=== PATIENT | female | born 1955 | race Caucasian/White ===

== ENCOUNTER → 2016-08-12 | Outpatient (CLI) | payer BC ==
[~2016-08-12] MED LIST: ALBU1AER9 INH; AMLO-110 PO; ASPCH81X PO; ATOR-26 PO; CEPH500C2 PO; CHOL20009 PO; DSWCR TOP; FERR325T51 PO; FLUO0.05 TOP; FLV1 PO; FURO40TA3 PO; INSPMPHMLG; INSUINJ4 SQ; LANS30CA63 PO; LEVO200T6 PO; METO50TA7 PO; NITR0.4S UT; OXYC-57 PO; PANT40TA PO; PEPTO BISMOL PO; PREG150C PO; SERT-234 PO; TOPI50TA24 PO; TRIA0.1L EX; VITAMIN B12 PO; [UNRECOGNIZED DRUG - CODE] PO
[2016-08-12 13:52] LABS: ESTIMATED AVERAGE GLUCOSE 203 mg/dl; HA1C FLAG Normal (Normal)
[2016-08-12 17:32] LABS: AST/SGOT 17 U/L (15-37); BLOOD UREA NITROGEN 35 mg/dl (7-18); BUN/CREATININE RATIO 25.2 (10-20); CALCIUM 9.3 mg/dl (8.5-10.1); CARBON DIOXIDE 28 mmol/L (21-32); CHLORIDE 107 mmol/L (98-107); GLUCOSE 110 mg/dl (70-99); POTASSIUM 4.5 mmol/L (3.5-5.1); SODIUM 143 mmol/L (136-145)
[2016-08-12 17:43] LABS: ALB/GLOB RATIO 1.1 (0.9-2); ALKALINE PHOSPHATASE 130 U/L (45-117); ALT/SGPT 32 U/L (12-78)
== END | disposition home or self-care (01) ==
LOC: C.LABMFLN 08:00
PROVIDERS: ATTEND Internal Medicine Cardiovascular Disease
DX: E78.5 Hyperlipidemia, unspecified (principal); I12.9 Hypertensive chronic kidney disease with stage 1 through stage 4 chronic kidney disease, or unspecified chronic kidney disease; I25.10 Atherosclerotic heart disease of native coronary artery without angina pectoris; N18.3 Chronic kidney disease, stage 3 (moderate); I50.32 Chronic diastolic (congestive) heart failure; E06.3 Autoimmune thyroiditis; E10.22 Type 1 diabetes mellitus with diabetic chronic kidney disease

== ENCOUNTER → 2016-11-11 | Outpatient (CLI) | payer BC ==
[2016-11-11 13:04] LABS: URINE APPEARANCE CLEAR (CLEAR); URINE BILIRUBIN NEG (NEG); URINE COLOR DK YELLOW; URINE EPITHELIAL CELL AUTO >30 /lpf (0-5); URINE NITRITE NEG (NEG); URINE PH 5.5 (4.5-7.5); URINE SPECIFIC GRAVITY 1.021 (1.000-1.030); UROBILINOGEN NEG (NEG)
[2016-11-11 13:09] LABS: MANUAL MICROSCOPIC REQUIRED? NO; REVIEW REQ? NO
[2016-11-11 13:30] LABS: MEAN CELL VOLUME 90.7 fL (80-100); MEAN CORPUSCULAR HEMOGLOBIN 29.8 pg (25-34); MEAN CORPUSCULAR HGB CONC 32.9 g/dl (32-36); MEAN PLATELET VOLUME 12.7 fL (7.4-10.4); PLATELET COUNT 219 K/uL (130-400); RED BLOOD COUNT 4.19 M/uL (4.2-5.4); WHITE BLOOD COUNT 7.34 K/uL (4.8-10.8)
[2016-11-11 13:51] LABS: URINE PROTIEN/CREAT RATIO 0.1 (0-0.2); URINE TOTAL PROTEIN 17.6 mg/dl (0-11.9)
[2016-11-11 13:55] LABS: BLOOD UREA NITROGEN 24 mg/dl (7-18); BUN/CREATININE RATIO 15.7 (10-20); CARBON DIOXIDE 27 mmol/L (21-32); CHLORIDE 109 mmol/L (98-107); GLUCOSE 147 mg/dl (70-99); POTASSIUM 3.9 mmol/L (3.5-5.1); SODIUM 145 mmol/L (136-145)
[2016-11-11 14:06] LABS: FERRITIN 231.5 ng/ml (8.0-388.0); PHOSPHORUS 4.5 mg/dl (2.5-4.9); TOTAL IRON BINDING CAPACITY 260 mcg/dl (250-450)
[2016-11-11 14:22] LABS: ESTIMATED AVERAGE GLUCOSE 200 mg/dl; HA1C FLAG Normal (Normal)
[2016-11-11 15:07] LABS: CALCIUM 9.7 mg/dl (8.5-10.1)
== END | disposition home or self-care (01) ==
LOC: C.LABMFLN 09:09
PROVIDERS: ATTEND Internal Medicine Endocrinology, Diabetes & Metabolism
DX: N18.3 Chronic kidney disease, stage 3 (moderate) (principal); I12.9 Hypertensive chronic kidney disease with stage 1 through stage 4 chronic kidney disease, or unspecified chronic kidney disease; D64.9 Anemia, unspecified; E55.9 Vitamin D deficiency, unspecified; E03.9 Hypothyroidism, unspecified; E10.9 Type 1 diabetes mellitus without complications

== ENCOUNTER → 2017-04-21 | Day surgery (SDC) | payer BC ==
[2017-04-11 07:54] VITALS: Ht 164.5 cm; Wt 77.3 kg
--- NOTE | 2017-04-20 16:15 | History and Physical: Surg Cnt ---
History & Physical Date Apr 20, 2017. 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 1 diabetes mellitus (2) Diabetic peripheral neuropathy associated with type 1 diabetes mellitus (3) Loss of sensation Additional History Hepatic Disease: No Endocrine Disorder: Yes Kidney Disease: No Hypertension: No Heart Disease: No Bleeding Tendencies: No Infectious Diseases: No Allergies Coded Allergies: Ibuprofen (Verified Allergy, Unknown, NOT SUPPOSED TO TAKE-KIDNEY PROBLEMS , 04/11/17) Lansoprazole (Verified Allergy, Unknown, GI SYMPTOMS, 04/11/17) Metoclopramide (Verified Allergy, Unknown, ANXIOUS, 04/11/17) Naproxen (Verified Allergy, Unknown, NOT SUPPOSED TO TAKE D/T KIDNEY PROBLEMS, 04/11/17) Home Medications Scheduled Amlodipine (Norvasc), 5 MG PO QAM Aspirin (Aspirin Chewable), 81 MG PO QAM Atorvastatin (Lipitor), 80 MG PO HS Cholecalciferol (Vitamin D), 1 TAB PO QAM Folic Acid (Folic Acid), 1 TAB PO BID Furosemide (Lasix), 40 MG PO QAM Insulin Glargine (Lantus Solostar Pen), 12 UNIT SQ QAM Insulin Human Lispro (Insulin Humalog Pump ), 1 EA N/A UD Levothyroxine Sodium (Levothyroxine Sodium), 1 TAB PO QAM Metoprolol Succ (Toprol Xl) (Toprol-Xl), 50 MG PO QAM Nitroglycerin (Nitrostat), 0.4 MG UT PRN Pantoprazole (Protonix), 1 TAB PO BID Sertraline (Zoloft), 200 MG PO QAM Topiramate (Topamax), 50 MG PO BID Triamcinolone Acet 0.1% (Kenelog 0.1%), 1 DOSE EX BID [Vitamin B12], 250 MCG PO QAM Scheduled PRN Albuterol Sulfate (Proair Hfa), 2 PUFFS INH QID PRN Desonide 0.05% (Desowen 0.05%), 1 APPLN TOP BID PRN for PRN [Pepto Bismol Liquid], 30 PO for Diarrhea Physical Examination Skin: warm/dry, no rash Eyes: normal inspection, EOMI, sclerae normal ENT: normal ENT inspection, pharynx normal Head: normocephalic, atraumatic Neck: supple, no adenopathy, trachea midline Respiratory/Chest: lungs clear, normal breath sounds, no respiratory distress Cardiovascular: regular rate, rhythm, no edema, no murmur Abdomen / GI: normal bowel sounds, non tender Back: normal inspection Extremities: normal inspection, normal range of motion Neurologic/Psych: no motor/sensory deficits, alert, normal reflexes, oriented x 3 Diagnosis left side sensorineural hearing loss, Meniere's Plan of Treatment left cochlear implant
[~2017-04-21] VITALS: Ht 164.5 cm; Wt 77.3 kg
[~2017-04-21] MED LIST changes: +ATROPINE SULFATE 0.1 MG/ML 5ML SYR IV PRN; +CEFAZOLIN 1000MG/55 ML D5W IV SCH; +EpHEDrine SULFATE 50MG/5ML SYR ONE; +EpHEDrine SULFATE INJ 50 MG/ML AMP IV PRN; +FENTANYL CITRATE INJ 50 MCG/1 ML 2 ML VIAL IV PRN; +FENTANYL CITRATE INJ 50 MCG/1 ML 2 ML VIAL ONE; -FERR325T51 PO; -FLUO0.05 TOP; +GLYCOPYRROLATE INJ 0.2 MG/ML VIAL ONE; +LACTATED RINGER'S 1000ML 1,000 ML IV SCH; -LANS30CA63 PO; +LIDOCAINE HCL 2% 2 ML VIAL (20MG/ML) ONE; +LIDOCAINE/EPINEPHRINE 1% INJ 50 ML VIAL ONE; +METHYLENE BLUE 0.5% 10 ML VIAL ONE; +MIDAZOLAM HCL 1 MG/ML 2ML VIAL ONE; +NEOSTIGMINE METHYLSULFATE 5 MG/5 ML SYR ONE; +ONDANSETRON INJ 2 MG/ML 2 ML VIAL IV PRN; +ONDANSETRON INJ 2 MG/ML 2 ML VIAL ONE; +OXYCODONE/ACETAMINOPHEN 5-325 TAB PO PRN; -PREG150C PO; +PROPOFOL IV EMULSION 10 MG/ML 20 ML VIAL IV ONE; +SODIUM CHLORIDE 0.9% 1000ML 1,000 ML IV SCH; -[UNRECOGNIZED DRUG - CODE] PO
--- NOTE | 2017-04-21 07:05 | History & Physical Bridge Note ---
H&P Re-Evaluation Bridge Note: I have examined the patient, reviewed the History & Physical and in the interval since the performance of the History & Physical I have noted the following changes of clinical significance: No changes noted
--- NOTE | 2017-04-21 10:06 | Discharge Instructions-SurgCtr ---
Discharge Instructions Date of Service Apr 21, 2017. Visit Reason for Visit: Left Sensory Hearing Loss;Pre-Op Discharge Discharge Diagnosis / Problem: same Discharge Goals Goal(s): Improve function Medications Stopped Medications Name(s): Held ASA 81 mg x 2 days Activity Recommendations Activity Limitations: resume your previous activity Anesthesia . Post Anesthesia Instructions: If you have had General Anesthesia or IV Sedation: * Do not drive today. * Resume driving when surgeon permits. * Do not make important decisions or sign legal documents today. * Call surgeon for: 1. Temperature elevations greater than 101 degrees F. 2. Uncontrollable pain. 3. Excessive bleeding. 4. Persistent nausea and vomiting. 5. Medication intolerance (nausea, vomiting or rash). * For nausea and vomiting use only clear liquids such as: tea, soda, bouillon until nausea subsides, then gradually increase diet as tolerated. * If you have any concerns or questions, call your surgeon's office. If physician is unavailable and it is an emergency, call 911 or go to the nearest emergency room. . Instructions / Follow-Up Instructions / Follow-Up ACTIVITY RECOMMENDATIONS: No limitations OVER THE COUNTER MEDICATIONS: Continue any other previous medications unless otherwise indicated by your surgeon. * You may use Tylenol for mild pain as per bottle instructions. SPECIAL CARE INSTRUCTIONS: * Keep operative ear dry. * Change cotton balls 4 times per day. Leave packing in ear. * Sneeze with your mouth open. * Do not blow your nose. Sniff back instead. * Please call with any increasing pain, increasing drainage, active bleeding, redness and/or swelling, or any concerns. Dr. Bah's office number is . FOLLOW UP VISIT: If not already scheduled, please call to schedule follow-up appointment with Dr. Bah. Diet Recommendations Home Diet: no limitations Procedures Procedures Performed: Left Cochlear Implant Pending Studies Studies pending at discharge: no Medical Emergencies . Who to Call and When: Medical Emergencies: If at any time you feel your situation is an emergency, please call 911 immediately. . Non-Emergent Contact Non-Emergency issues call your: Primary Care Provider . . "Provider Documentation" section prepared by Adrianna Bah. . [place] Drug Monitoring Program Search Results: no issues identified
--- NOTE | 2017-04-21 10:23 | Anesthesiology Progress Note ---
Anesthesia Post Op Note Date & Time Apr 21, 2017 at 10:23 Vital Signs Pain Intensity: 0 Vital Signs Past 12 Hours Date Time Temp Pulse Resp B/P (MAP) Pulse Ox O2 Delivery O2 Flow Rate FiO2 04/21/17 09:42 36.2 77 12 170/72 100 Diffusion Mask 5 04/21/17 06:48 36.7 66 18 176/74 (108) 98 Room Air Notes Mental Status: alert / awake / arousable, participated in evaluation Pt Amnestic to Procedure: Yes Nausea / Vomiting: adequately controlled Pain: adequately controlled Airway Patency, RR, SpO2: stable & adequate BP & HR: stable & adequate Hydration State: stable & adequate Anesthetic Complications: no major complications apparent
[2017-04-21 10:33] VITALS: BP 134/68; PULSE 73; TEMP 36.8; O2SAT 99
--- NOTE | 2017-04-21 10:41 | OPERATIVE REPORT ---
DATE OF OPERATION: 04/21/2017 DIAGNOSIS: Left-sided sensorineural hearing loss with Meniere's disease. INDICATION: This 61-year-old lady experienced left-sided sensorineural hearing loss from persistent Meniere's disease and desires cochlear implant. PREOPERATIVE DIAGNOSIS: Left-sided sensorineural hearing loss. POSTOPERATIVE DIAGNOSIS: Same. PROCEDURE: Cochlear implant. SURGEON: Dr. Bah. ANESTHESIA: General endotracheal. COMPLICATIONS: None. BLOOD LOSS: 20 mL. DESCRIPTION OF PROCEDURE: The patient was brought to the operating room and placed in the supine position. General endotracheal anesthesia was induced. She was prepped with Betadine paint and draped in the usual sterile manner. The left postauricular area was shaved and prepped with Betadine paint. The incision was marked 6 cm behind the external auditory canal orifice. The incision was a semicircular incision of approximately 6 cm. The implant was in the middle and incision was 3 cm around the middle of the implant site. The incision was made using the 15 blade, carried down through the skin and subcutaneous layer and the temporalis muscle layer using the 15 blade. The elevation was continued posteriorly, exposing the implant site. Bleeders were controlled using the bipolar cautery. The implant site was exposed. The periosteum was incised with the cruciate incision using the 15 blade, and then using the periosteal elevator for elevating the periosteum, and then the drill bit was used to drill the 3 mm guide hole, and then the 4 mm drill bit was used to increase the depth of the guide hole, and then the widening drill was used to widen the site. The titanium implant was placed and tightened into place. Checking all the edges, with no bleeding noted, and with implant properly seated, and the magnet guide showing that the bone was not too high around the implant, the magnet was tightened into place at [address]. The incision was closed with interrupted 4-0 Vicryl suture and then with Dermabond on the skin. The Kathy dressing was placed. The patient tolerated the procedure well and was taken to recovery area in satisfactory condition. I attest to the content of the Intraoperative Record and any orders documented therein. Any exceptions are noted below. DAMIEN
== END | disposition home or self-care (01) ==
LOC: X.SURG 06:33
PROVIDERS: ATTEND Otolaryngology
DX: H81.02 Meniere's disease, left ear (principal); H90.5 Unspecified sensorineural hearing loss; E10.49 Type 1 diabetes mellitus with other diabetic neurological complication; E10.618 Type 1 diabetes mellitus with other diabetic arthropathy; Z79.82 Long term (current) use of aspirin; Z79.4 Long term (current) use of insulin

== ENCOUNTER → 2017-07-14 | Outpatient (CLI) | payer BC ==
[~2017-07-14] MED LIST changes: -ATROPINE SULFATE 0.1 MG/ML 5ML SYR IV PRN; -CEFAZOLIN 1000MG/55 ML D5W IV SCH; -EpHEDrine SULFATE 50MG/5ML SYR ONE; -EpHEDrine SULFATE INJ 50 MG/ML AMP IV PRN; -FENTANYL CITRATE INJ 50 MCG/1 ML 2 ML VIAL IV PRN; -FENTANYL CITRATE INJ 50 MCG/1 ML 2 ML VIAL ONE; -GLYCOPYRROLATE INJ 0.2 MG/ML VIAL ONE; -LACTATED RINGER'S 1000ML 1,000 ML IV SCH; -LIDOCAINE HCL 2% 2 ML VIAL (20MG/ML) ONE; -LIDOCAINE/EPINEPHRINE 1% INJ 50 ML VIAL ONE; -METHYLENE BLUE 0.5% 10 ML VIAL ONE; -MIDAZOLAM HCL 1 MG/ML 2ML VIAL ONE; -NEOSTIGMINE METHYLSULFATE 5 MG/5 ML SYR ONE; -ONDANSETRON INJ 2 MG/ML 2 ML VIAL IV PRN; -ONDANSETRON INJ 2 MG/ML 2 ML VIAL ONE; -OXYCODONE/ACETAMINOPHEN 5-325 TAB PO PRN; -PROPOFOL IV EMULSION 10 MG/ML 20 ML VIAL IV ONE; -SODIUM CHLORIDE 0.9% 1000ML 1,000 ML IV SCH
[2017-07-14 18:07] LABS: ALT/SGPT 22 U/L (12-78); AST/SGOT 14 U/L (15-37); BLOOD UREA NITROGEN 23 mg/dl (7-18); BUN/CREATININE RATIO 20.1 (10-20); CALCIUM 8.6 mg/dl (8.5-10.1); CARBON DIOXIDE 29 mmol/L (21-32); CHLORIDE 107 mmol/L (98-107); CREATININE 1.12 mg/dl (0.60-1.20); GLUCOSE 230 mg/dl (70-99); POTASSIUM 3.8 mmol/L (3.5-5.1); SODIUM 138 mmol/L (136-145)
[2017-07-14 18:18] LABS: ALKALINE PHOSPHATASE 121 U/L (45-117); CHOLESTEROL 272 mg/dl (0-200); CHOLESTEROL/HDL RATIO 4.1; HDL CHOLESTEROL 66 mg/dl; LDL CHOLESTEROL CALCULATED 186 mg/dl; THYROID STIMULATING HORMONE 0.845 uIu/ml (0.300-4.500); TRIGLYCERIDES 100 mg/dl (0-150); VERY LOW DENSITY LIPOPROT CALC 20 mg/dl
[2017-07-15 06:11] LABS: ESTIMATED AVERAGE GLUCOSE 203 mg/dl; HA1C FLAG Normal (Normal)
== END | disposition home or self-care (01) ==
LOC: C.LABMFLN 12:08
PROVIDERS: ATTEND Internal Medicine Endocrinology, Diabetes & Metabolism
DX: E78.5 Hyperlipidemia, unspecified (principal); I25.10 Atherosclerotic heart disease of native coronary artery without angina pectoris; Z95.1 Presence of aortocoronary bypass graft; E10.9 Type 1 diabetes mellitus without complications; E55.9 Vitamin D deficiency, unspecified

== ENCOUNTER → 2017-12-20 | Outpatient (CLI) | payer BC ==
[~2017-12-20] MED LIST changes: -CEPH500C2 PO; -METO50TA7 PO; +METO50TA8 PO; -OXYC-57 PO
[2017-12-20 13:30] LABS: HEMOGLOBIN A1C 8.8 % (4.5-5.6)
== END | disposition home or self-care (01) ==
LOC: C.LABMFLN 10:03
PROVIDERS: ATTEND Internal Medicine Endocrinology, Diabetes & Metabolism
DX: E78.5 Hyperlipidemia, unspecified (principal); E10.9 Type 1 diabetes mellitus without complications

== ENCOUNTER 2024-07-23 09:19 | Inpatient (IN) ==
[2024-07-23 10:11] LABS: iSTAT Creatinine 1.7 mg/dl (0.6-1.3); iSTAT Hemoglobin 9.2 g/dl (12.0-16.0); iSTAT Ionized Calcium 1.25 mmol/l (1.12-1.32); iSTAT Potassium 4.4 mmol/L (3.3-5.0)
--- NOTE | 2024-07-23 10:17 | Emergency Department Note ---
Impression & Plan SOB (shortness of breath), Anemia, Chest pain, exertional, Chronic anticoagulation ED Provider Note NAME: IRMA LEVIN AGE: 69 SEX: Female INFORMANT: Patient ED PROVIDER(S): Pete Thomas MD CHIEF COMPLAINT: Shortness of breath and chest pain PLAN: Disposition: Admitted Outpatient prescription management: none Referral: None MEDICAL DECISION MAKING: Patient presented because of shortness of breath and chest pain. She has a history of anticoagulation and anemia. She was referred by GI. Prior GI endoscopy reviewed and she was noted to have a friable gastric mucosa. Suspect this could be the etiology of her continued anemia. Patient does have a moderate anemia albeit somewhat better than prior. Cardiac workup negative. ECG nonischemic. Consultation was made with Dr. Amilcar Treviño of the [facility] service. He did request bilateral lower extremity ultrasounds as the patient could potentially require filter placement and wanted to know about clot burden. This was done. No residual DVT was found. Patient was evaluated in the ER for further management. 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 Triage Nursing notes: reviewed and agree them. Vital Signs: reviewed and remarkable for hypertension Additional History obtained from: none Chronic Medical/Social Conditions affecting care: Anticoagulation, anemia, CAD Prior/ Outside/ External records reviewed: Gastroenterology visit and endoscopy report reviewed from this fall. Friable gastric mucosa noted. Differential Diagnosis: Infection, dehydration, metabolic abnormality, hypo/hyperglycemia, electrolyte disturbance, anemia, hypoxia, cardiac sources, intracerebral event, toxicologic, neurologic, as well as other pathologies. Diagnostics, independently interpreted by me: ECG: Twelve-lead ECG reveals a normal sinus rhythm at [address] elevation or depression. No PACs or PVCs. Cardiac Monitoring: Cardiac monitoring ordered by me: The patient was placed on continuous cardiac monitoring and observed. It revealed a normal sinus rhythm at 81 beats per minute without ectopy or evidence of dysrhythmia. Medical decision rules: none Imaging studies: Chest x-ray reveals some trace pulmonary edema otherwise negative for infiltrate, pneumothorax, or free air. HPI: 69 year old Female arrives for evaluation of shortness of breath. This started over the week and is associated with exertion. Patient also notes having a low hemoglobin. Patient has a history of PE and is anticoagulated. She has a history of GI bleed. She was at the GI clinic today and referred to the ER. The patient also notes the following associated symptoms, substernal exertional chest pain, chronic dark stool. The patient has noted rest for relieving factors. Current pain is rated as 0/10. Pain was a 4. Pt denies LOC, headache, fevers, chills, diaphoresis, visual changes, neck pain, nausea, vomiting, abdominal pain, back pain, hematochezia, urinary symptoms, numbness, weakness, lymphadenopathy, rash, or other complaints.. PAST MEDICAL HISTORY: See Below, hide anemia, CAD, GERD diabetes PAST SURGICAL HISTORY: See Below, CABG SOCIAL HISTORY: See Below, HOME MEDICATIONS: See Below ALLERGIES: See Below VITALS: See Below PHYSICAL EXAMINATION: GENERAL: Awake, alert, [id number], in no distress HENT: Normocephalic, atraumatic. Oropharynx unremarkable. EYES: Normal conjunctiva. Sclera non-icteric. NECK: Inspection normal. Non-tender. Supple. No nuchal rigidity. FROM. No masses. RESPIRATORY: Clear to auscultation. No wheezes. No rales. Normal respiratory effort. CARDIAC: Normal rate. Normal rhythm. No murmurs. No rubs. Extremities warm and well perfused. Pulses equal. No JVD. GI: Soft, non-distended. No tenderness to palpation. No rebound or guarding. No masses. RECTAL: Deferred. MUSCULOSKELETAL: Atraumatic. Chest examination reveals no tenderness. The back is kyphotic on inspection without obvious abnormality. There is no CVA tenderness to palpation. No joint edema. LOWER EXTREMITIES: Calves are equal size bilaterally and non-tender. 1+ edema. NEURO: Normal sensorium. No sensory or motor deficits noted. SKIN: No rash or jaundice noted. 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 Bah 2017 left Cochlear Attract Anemia Constipation GERD (gastroesophageal reflux disease) Statin myopathy Meniere's disease of left ear Sensorineural hearing loss (SNHL) of left ear with restricted hearing of right ear Osteoporosis Diabetes type 1, controlled Foot drop Hypoglycemia unawareness in type 1 diabetes mellitus Depression with anxiety Ataxic gait Diabetic autonomic neuropathy associated with type 1 diabetes mellitus Diabetic nephropathy associated with type 1 diabetes mellitus Dysesthesia Dyslipidemia Gastroparesis History of stroke Hypothyroidism Loss of protective sensation of skin of foot Proliferative diabetic retinopathy associated with type 1 diabetes mellitus S/P CABG (coronary artery bypass graft) Vitamin D deficiency Hypertension Chronic kidney disease, stage III (moderate) Diabetic peripheral neuropathy associated with type 1 diabetes mellitus Medical History Status post placement of bone anchored hearing aid (BAHA) Sensorineural hearing loss (SNHL) of left ear with restricted hearing of right ear Proliferative diabetic retinopathy associated with type 1 diabetes mellitus Dyslipidemia Diabetic nephropathy associated with type 1 diabetes mellitus Diabetic peripheral neuropathy associated with type 1 diabetes mellitus Depression with anxiety Ataxic gait Chronic obstructive pulmonary disease Meniere disease of left ear Osteoporosis Hypothyroidism Hypertension History of CVA (cerebrovascular accident) GERD (gastroesophageal reflux disease) Gastroparesis Foot drop, left Chronic kidney disease, stage 3 Anemia Migraines Arthritis Degenerative disc disease Barretts esophagus Insulin pump in place Charcot's joint of foot in type 1 diabetes mellitus History of obesity Surgical History History of kyphoplasty History of cardiac cath Femur fracture, left History of esophagogastroduodenoscopy (EGD) History of colonoscopy History of bladder surgery History of tibial fracture History of tooth extraction History of cataract surgery History of carpal tunnel release Hx of hysterectomy Hx of tubal ligation Hx of CABG Family History Sister Breast cancer Hypertension Brother Diabetes Hypertension Other No family history of adverse response to anesthesia Denies family history of Ovarian cancer Prostate cancer Myocardial infarction Colorectal cancer Social History Smoking Status: Never smoker Second Hand Exposure: No; Do You Dip or Chew Tobacco: No; Hx Alcohol Use: No Hx Substance Use: No Preferred Language: Persian Communication Ability: Effective Visual Impairment: No Limitations Hearing Ability: Cochlear Implant Automatic 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: No Beliefs That Will Affect Care: None marital status: Unknown Current Living Situation: Significant Other current occupational status: retired Other Information That Helps Us Care for You: No Feels Safe at Home: Yes Safety Concerns: Feels Safe At This Time Diet: regular caffeine: Yes (12 oz decaf coffee daily) Physical Activity Frequency: Does not Exercise Seatbelt Use: always Do you think of yourself as: straight/heterosexual Gender Identity: Female Assistive Devices: Cane, CPAP, Glasses and Walker Allergies Allergies Allergy/AdvReac Type Severity Reaction Status Date / Time lansoprazole Allergy Mild GI SYMPTOMS Verified 07/23/24 08:27 lisinopril Allergy Mild cough Verified 07/23/24 08:27 metoclopramide Allergy Mild ANXIOUS Verified 07/23/24 08:27 ibuprofen Allergy Unknown NOT Verified 07/23/24 08:27 SUPPOSED TO TAKE-KIDNEY PROBLEMS naproxen Allergy Unknown NOT Verified 07/23/24 08:27 SUPPOSED TO TAKE D/T KIDNEY PROBLEMS [id number] Reductase AdvReac Intermediate muscle Verified 07/23/24 08:27 Inhibitor cramps Home Meds Home Medications Medication Instructions Recorded Confirmed blood sugar diagnostic (Contour #[id number] ea 04/20/19 07/23/24 Next Test Strips) calcium 333 mg 1 tab PO HS 03/25/21 07/23/24 (carbonate)-magnesium 133 mg (oxide)-zinc 5 mg tablet cyanocobalamin (vitamin B-12) 2,500 mcg PO QAM 03/25/21 07/23/24 2,500 mcg tablet losartan 100 mg tablet 100 mg PO QAM 03/25/21 07/23/24 aspirin 81 mg tablet,delayed 81 mg PO QAM 02/16/23 07/23/24 release (Adult Low Dose Aspirin) ezetimibe 10 mg tablet 10 mg PO QAM 08/11/23 07/23/24 albuterol sulfate 0.63 mg/3 mL 0.63 mg inhalation Q4H PRN sob 11/07/23 07/23/24 solution for nebulization amlodipine 10 mg tablet (Norvasc) 10 mg PO QAM 11/07/23 07/23/24 folic acid 1 mg tablet 1 mg PO HS 11/07/23 07/23/24 blood-glucose sensor (Dexcom G6 11/11/23 07/23/24 Sensor device) carvedilol 12.5 mg tablet 12.5 mg PO BID 11/11/23 07/23/24 spironolactone 25 mg tablet 25 mg PO QAM 11/11/23 07/23/24 torsemide 10 mg tablet 10 mg PO QAM PRN prn 03/28/24 07/23/24 insulin lispro 100 unit/mL 70 unit subcut DAILY 06/04/24 07/23/24 subcutaneous solution (Humalog U-100 Insulin) apixaban 5 mg tablet (Eliquis) 5 mg PO BID 07/03/24 07/23/24 Previous Rx's Medication Instructions Recorded denosumab 60 mg/mL subcutaneous 60 mg subcut Q6MO #1 mL 10/03/23 syringe (Prolia) famotidine 40 mg tablet 40 mg PO BID GERD #60 tabs 11/08/23 triamcinolone acetonide 0.1 % 1 applic topical DAILY #30 grams 01/17/24 topical ointment calcitriol 0.25 mcg capsule 0.25 mcg PO HS #30 caps 04/03/24 esomeprazole magnesium 40 mg 40 mg PO BID #60 caps 05/02/24 capsule,delayed release evolocumab 140 mg/mL subcutaneous 140 mg subcut UD #6 mL 05/31/24 pen injector (Grant Pottsick) Tirosint 125 mcg capsule 125 mcg PO DAILY #90 caps 06/11/24 (levothyroxine) Results & Data (ED) Vital Signs Vital Signs - 24 hr 07/23/24 09:33 07/23/24 10:04 07/23/24 10:05 Temperature 36.3 C L Temperature Source Oral Pulse Rate 84 79 Pulse Rate from SpO2 Sensor Pulse Rhythm Respiratory Rate 20 Respiratory Effort / Characteristics Non-Labored Respiratory Depth Normal Respiratory Pattern Regular Blood Pressure 149/70 H Blood Pressure Mean 96 Pulse Oximetry 98 98 Oxygen Delivery Method Room Air Room Air Oxygen Flow Rate 0 Sepsis Recent Fever Within 48 Hours No Sepsis New/Unexplained Change in Mental Status N/A Sepsis Action Taken by Nursing No Action Required 07/23/24 10:05 07/23/24 10:05 07/23/24 10:07 Temperature Temperature Source Pulse Rate 78 81 Pulse Rate from SpO2 Sensor Pulse Rhythm Regular Respiratory Rate 16 14 Respiratory Effort / Characteristics Respiratory Depth Respiratory Pattern Blood Pressure 153/95 H Blood Pressure Mean 114 Pulse Oximetry 98 98 98 Oxygen Delivery Method Room Air Room Air Room Air Oxygen Flow Rate Sepsis Recent Fever Within 48 Hours Sepsis New/Unexplained Change in Mental Status Sepsis Action Taken by Nursing 07/23/24 10:48 07/23/24 10:48 07/23/24 10:50 Temperature Temperature Source Pulse Rate 78 77 Pulse Rate from SpO2 Sensor 77 Pulse Rhythm Respiratory Rate 15 16 Respiratory Effort / Characteristics Respiratory Depth Respiratory Pattern Blood Pressure 154/75 H 154/75 H Blood Pressure Mean 120 120 Pulse Oximetry 96 96 Oxygen Delivery Method Oxygen Flow Rate Sepsis Recent Fever Within 48 Hours Sepsis New/Unexplained Change in Mental Status Sepsis Action Taken by Nursing 07/23/24 11:02 07/23/24 12:08 Temperature Temperature Source Pulse Rate 77 79 Pulse Rate from SpO2 Sensor 77 79 Pulse Rhythm Respiratory Rate 15 19 Respiratory Effort / Characteristics Respiratory Depth Respiratory Pattern Blood Pressure 158/79 H 161/74 H Blood Pressure Mean 105 103 Pulse Oximetry 98 97 Oxygen Delivery Method Oxygen Flow Rate Sepsis Recent Fever Within 48 Hours Sepsis New/Unexplained Change in Mental Status Sepsis Action Taken by Nursing Laboratory Data 07/23/24 09:50 07/23/24 09:50 Lab Results 07/23/24 07/23/24 07/23/24 Range/Units 09:50 09:52 09:57 WBC 7.31 (4.8-10.8) K/ul RBC 2.87 L (4.20-5.40) M/uL Hgb 8.2 L (12.0-16.0) g/dl POC Hgb 9.2 L (12.0-16.0) g/dl Hct 26.3 L (37.0-47.0) % POC Hct 27 L (37-47) % MCV 91.6 (80.0-100.0) fL MCH 28.6 (25.0-34.0) pg MCHC 31.2 L (32.0-36.0) g/dL RDW Std Deviation 49.6 H (36.4-46.3) fL RDW Coeff of Dash 14.6 H (11.5-14.5) % Plt Count 302 (130-400) K/uL MPV 11.0 (9.4-12.4) fL Immature Gran % (Auto) 0.3 % Neut % (Auto) 61.9 % Lymph % (Auto) 20.5 % [place] % (Auto) 7.7 % Eos % (Auto) 8.8 % Baso % (Auto) 0.8 % Neut # (Auto) 4.53 (1.40-6.50) K/uL Lymph # (Auto) 1.50 (1.20-3.40) K/uL [place] # (Auto) 0.56 (0.11-0.59) K/uL Eos # (Auto) 0.64 H (0.00-0.50) K/uL Baso # (Auto) 0.06 (0.00-0.20) K/uL Immature Gran # (Auto) 0.02 (0.01-0.20) K/uL POC Sodium 139 (135-144) mmol/L Sodium 138 (136-145) mmol/L POC Potassium 4.4 (3.3-5.0) mmol/L Potassium 4.4 (3.5-5.1) mmol/L POC Chloride 104 (101-112) mmol/L Chloride 106 (98-107) mmol/L Carbon Dioxide 26 (21-32) mmol/L POC Total CO2 24 (24-31) mmol/L Anion Gap 6 (3-11) POC Anion Gap 17.0 (16-25) mmol/L POC BUN 27 H (7-18) mg/dl BUN 30 H (6-23) mg/dl Creatinine 1.60 H (0.6-1.2) mg/dl POC Creatinine 1.7 H (0.6-1.3) mg/dl Est Cr Clr Drug Dosing 35.7 ml/min eGFR 34.48 BUN/Creatinine Ratio 18.8 (10-20) Glucose 171 H (70-99(Fasting)) mg/dl POC Glucose (other) 163 H (70-99) mg/dl Calcium 9.5 (8.6-10.3) mg/dl POC Ioniz Calcium Zackary 1.25 (1.12-1.32) mmol/l Magnesium 1.9 (1.7-2.4) mg/dl Total Bilirubin 0.4 (0.2-1.0) mg/dl AST 13 (13-39) U/L ALT 10 (7-52) U/L Alkaline Phosphatase 46 (34-104) U/L Troponin I High Sens 8.4 (0-14) pg/ml B-Natriuretic Peptide (0-100) pg/ml Total Protein 6.4 (6.0-8.3) gm/dl Albumin 4.2 (3.4-5.0) gm/dl Globulin 2.2 L (2.5-4.0) gm/dl Albumin/Globulin Ratio 1.9 (0.9-2) Urine Color Urine Appearance (Clear) Urine pH (4.5-7.5) Ur Specific [place] (1.000-1.030) Urine Protein (Negative) Urine Glucose (UA) (Negative) Urine Ketones (Negative) Urine Blood (Negative) Urine Nitrite (Negative) Urine Bilirubin (Negative) Urine Urobilinogen (Negative) Ur Leukocyte Esterase (Negative) Urine WBC (Auto) (0-5) /hpf Urine RBC (Auto) (0-2) /hpf U Hyaline Cast (Auto) (0-2) /lpf U Epithel Cells (Auto) (0-2) /hpf Urine Bacteria (Auto) (None Seen) Blood Type A Positive Antibody Screen NEGATIVE 07/23/24 07/23/24 Range/Units 10:45 11:21 WBC (4.8-10.8) K/ul RBC (4.20-5.40) M/uL Hgb (12.0-16.0) g/dl POC Hgb (12.0-16.0) g/dl Hct (37.0-47.0) % POC Hct (37-47) % MCV (80.0-100.0) fL MCH (25.0-34.0) pg MCHC (32.0-36.0) g/dL RDW Std Deviation (36.4-46.3) fL RDW Coeff of Dash (11.5-14.5) % Plt Count (130-400) K/uL MPV (9.4-12.4) fL Immature Gran % (Auto) % Neut % (Auto) % Lymph % (Auto) % [place] % (Auto) % Eos % (Auto) % Baso % (Auto) % Neut # (Auto) (1.40-6.50) K/uL Lymph # (Auto) (1.20-3.40) K/uL [place] # (Auto) (0.11-0.59) K/uL Eos # (Auto) (0.00-0.50) K/uL Baso # (Auto) (0.00-0.20) K/uL Immature Gran # (Auto) (0.01-0.20) K/uL POC Sodium (135-144) mmol/L Sodium (136-145) mmol/L POC Potassium (3.3-5.0) mmol/L Potassium (3.5-5.1) mmol/L POC Chloride (101-112) mmol/L Chloride (98-107) mmol/L Carbon Dioxide (21-32) mmol/L POC Total CO2 (24-31) mmol/L Anion Gap (3-11) POC Anion Gap (16-25) mmol/L POC BUN (7-18) mg/dl BUN (6-23) mg/dl Creatinine (0.6-1.2) mg/dl POC Creatinine (0.6-1.3) mg/dl Est Cr Clr Drug Dosing ml/min eGFR BUN/Creatinine Ratio (10-20) Glucose (70-99(Fasting)) mg/dl POC Glucose (other) (70-99) mg/dl Calcium (8.6-10.3) mg/dl POC Ioniz Calcium Zackary (1.12-1.32) mmol/l Magnesium (1.7-2.4) mg/dl Total Bilirubin (0.2-1.0) mg/dl AST (13-39) U/L ALT (7-52) U/L Alkaline Phosphatase (34-104) U/L Troponin I High Sens (0-14) pg/ml B-Natriuretic Peptide 185 H (0-100) pg/ml Total Protein (6.0-8.3) gm/dl Albumin (3.4-5.0) gm/dl Globulin (2.5-4.0) gm/dl Albumin/Globulin Ratio (0.9-2) Urine Color Yellow Urine Appearance Clear (Clear) Urine pH 7.0 (4.5-7.5) Ur Specific [place] 1.007 (1.000-1.030) Urine Protein Negative (Negative) Urine Glucose (UA) Negative (Negative) Urine Ketones Negative (Negative) Urine Blood Negative (Negative) Urine Nitrite Negative (Negative) Urine Bilirubin Negative (Negative) Urine Urobilinogen Negative (Negative) Ur Leukocyte Esterase Trace H (Negative) Urine WBC (Auto) 0-5 (0-5) /hpf Urine RBC (Auto) 0-2 (0-2) /hpf U Hyaline Cast (Auto) 0-2 (0-2) /lpf U Epithel Cells (Auto) 0-2 (0-2) /hpf Urine Bacteria (Auto) None Seen (None Seen) Blood Type Antibody Screen Administered Medications Insulin Aspart (Insulin Aspart Per Unit Charge) 0 units SC ACHS BAMBI Stop: 08/22/24 16:29 Last Admin: 07/23/24 17:22 Dose: 4 units Documented By: ROMEO Co-signed By: JOSÉ Discontinued Medications Pantoprazole Sodium 80 mg/ (Dextrose) 120 mls @ 480 mls/hr IV ONE STA Stop: 07/23/24 14:12 Last Infusion: 07/23/24 16:16 Dose: Infused Documented By: Admin: 07/23/24 15:55 Dose: 480 mls/hr Documented By: ROMEO Insulin Glargine (Lantus Per Unit Charge) 10 units SQ TODAY@1430 BAMBI Stop: 07/23/24 18:00 Last Admin: 07/23/24 17:23 Dose: 10 units Documented By: ROMEO Co-signed By: JOSÉ Imaging Data Radiologist's Impression: Chest X-Ray 07/23/24 10:01 XR chest 1V portable CLINICAL HISTORY: Dyspnea. COMPARISON STUDY: Chest radiograph May 05, 2022. FINDINGS: There are median sternotomy wires and mediastinal surgical clips. Moderate cardiomegaly is noted. There is no pneumothorax or pleural effusion. There are possible subtle bilateral lower lung densities and mild lower lung interstitial thickening. IMPRESSION: Subtle bilateral lower lung densities and interstitial thickening. The findings may reflect a mild infectious process or pulmonary edema. ACT 112: Negative or not required by law. Electronically signed by: Keanu Theodore M.D. 07/23/2024 10:28 AM Venous Doppler Study 07/23/24 11:44 US venous doppler LE BI CLINICAL HISTORY: hx of PE, SOB, GI bleed ? residual DVT TECHNIQUE: Bilateral lower extremity real-time compression venous ultrasound with Color Doppler imaging. Utilizing real-time ultrasonic imaging multiple real time high-resolution ultrasonic images with compression and noncompression maneuvers of the deep venous system in addition to color doppler imaging were performed from the common femoral vein through the proximal calf veins. COMPARISON: None available at the time of this dictation. FINDINGS/IMPRESSION: No deep venous thrombus, there is normal compressibility of the deep venous system from the common femoral vein through the proximal calf veins. No superficial venous thrombosis is identified. ACT 112: Negative or not required by law. Electronically signed by: Reggie Tracy M.D. 07/23/2024 1:27 PM Discharge Plan Visit Data Chief Complaint: Shortness of Breath/Dyspnea Stated Complaint: SOB, CHEST PAIN ED Provider: Pete Thomas Discharge Problem: SOB (shortness of breath), Anemia, Chest pain, exertional, Chronic anticoagulation Patient Disposition: Admitted As Inpatient Discharge Instructions Interventions: ED Discharge Assessment Last Done: 07/23/24 14:59
[2024-07-23 10:24] LABS: Basophils # (auto) 0.06 K/uL (0.00-0.20); Basophils % (auto) 0.8 %; Eosinophils # (auto) 0.64 K/uL (0.00-0.50); Eosinophils % (auto) 8.8 %; Hematocrit (blood only) 26.3 % (37.0-47.0); Hemoglobin 8.2 g/dl (12.0-16.0); Immature Granulocytes # (auto) 0.02 K/uL (0.01-0.20); Immature Granulocytes % (auto) 0.3 %; Lymphocytes % (auto) 20.5 %; Mean Corpuscular Hemoglobin 28.6 pg (25.0-34.0); Mean Corpuscular Hgb Conc 31.2 g/dL (32.0-36.0); Mean Corpuscular Volume 91.6 fL (80.0-100.0); Monocytes # (auto) 0.56 K/uL (0.11-0.59); Monocytes % (auto) 7.7 %; Neutrophils # (auto) 4.53 K/uL (1.40-6.50); Neutrophils % (auto) 61.9 %; Platelet Count 302 K/uL (130-400); RDW Coefficient of Variation 14.6 % (11.5-14.5); RDW Standard Deviation 49.6 fL (36.4-46.3); Red Blood Count 2.87 M/uL (4.20-5.40); White Blood Count 7.31 K/ul (4.8-10.8)
--- NOTE | 2024-07-23 10:29 | XRay Report ---
XR chest 1V portable CLINICAL HISTORY: Dyspnea. COMPARISON STUDY: Chest radiograph May 05, 2022. FINDINGS: There are median sternotomy wires and mediastinal surgical clips. Moderate cardiomegaly is noted. There is no pneumothorax or pleural effusion. There are possible subtle bilateral lower lung d ensities and mild lower lung interstitial thickening. IMPRESSION: Subtle bilateral lower lung densities and interstitial thickening. The findings may refle ct a mild infectious process or pulmonary edema. ACT 112: Negative or not required by law. Electronically signed by: Keanu Theodore M.D. 07/23/2024 10:28 AM
[2024-07-23 10:41] LABS: Albumin Globulin Ratio 1.9 (0.9-2); Albumin Level 4.2 gm/dl (3.4-5.0); BUN Creatinine Ratio 18.8 (10-20); Bilirubin,Total 0.4 mg/dl (0.2-1.0); Calcium 9.5 mg/dl (8.6-10.3); Creatinine Clr Calc Pharmacy 35.7 ml/min; Globulin 2.2 gm/dl (2.5-4.0); Magnesium 1.9 mg/dl (1.7-2.4); Potassium 4.4 mmol/L (3.5-5.1); Total Protein 6.4 gm/dl (6.0-8.3)
[2024-07-23 10:48] LABS: Troponin I High Sensitivity 8.4 pg/ml (0-14)
[2024-07-23 11:08] LABS: Appearance Urine Clear (Clear); Bacteria Urine Automated None Seen (None Seen); Bilirubin Urine Negative (Negative); Blood Urine Negative (Negative); Cast Urine Automated 0-2 /lpf (0-2); Color Urine Yellow; Epithelial Cell Urine Auto 0-2 /hpf (0-2); Glucose Urine UA Negative (Negative); Ketones Urine Negative (Negative); Leukocyte Esterase Urine Trace (Negative); Nitrite Urine Negative (Negative); Protein Urine Negative (Negative); RBC Urine Automated 0-2 /hpf (0-2); Specific Gravity Urine 1.007 (1.000-1.030); Urobilinogen Urine Negative (Negative); WBC Urine Automated 0-5 /hpf (0-5)
--- NOTE | 2024-07-23 11:37 | Electrocardiogram Report ---
Test Reason : Blood Pressure : */* mmHG Vent. Rate : 81 BPM Atrial Rate : 81 BPM P-R Int : 134 ms QRS Dur : 68 ms QT Int : 370 ms P-R-T Axes : 46 12 61 degrees QTcB Int : 429 ms Normal sinus rhythm Normal ECG Confirmed by Ari Chapa ([id number]) on 07/23/2024 11:37:33 AM Referred By: Confirmed By: Ari Chapa
--- NOTE | 2024-07-23 13:29 | Ultrasound Report ---
US venous doppler LE BI CLINICAL HISTORY: hx of PE, SOB, GI bleed ? residual DVT TECHNIQUE: Bilateral lower extremity real-time compression venous ultrasound with Color Doppler imagi ng. Utilizing real-time ultrasonic imaging multiple real time high-resolution ultrasonic images with compression and noncompression maneuvers of the deep venous system in addition to color doppler imagi ng were performed from the common femoral vein through the proximal calf veins. COMPARISON: None available at the time of this dictation. FINDINGS/IMPRESSION: No deep venous thrombus, there is normal compressibility of the deep venous system from the common fe moral vein through the proximal calf veins. No superficial venous thrombosis is identified. ACT 112: Negative or not required by law. Electronically signed by: Reggie Tracy M.D. 07/23/2024 1:27 PM
--- NOTE | 2024-07-23 13:48 | History & Physical Report ---
Date of Service July 23, 2024 Assessment & Plan (1) Upper GI bleed: Plan: Assessment: 69-year-old female with a history of type I DM, past bypass without PCI/stents, CKD, neuropathy, friable gastric mucosa with anemia who was admitted for suspected upper GI bleed. She is pending a scope with GI. Patient has been ordered a PPI bolus and twice daily push dosing and is currently NPO. Her case complicated by a PE diagnosed 1 month ago. Eliquis is currently held for bleeding. Dopplers of the lower extremities were obtained and do not show any residual DVT, no indication for emergent IVC evaluation. Patient is not hypoxic. Her shortness of breath and chest discomfort improved around transfusion suggesting anemia as the cause she does not show any labs or EKG abnormalities consistent of ischemic cardiac disease. GI bleed EGD 04/2024 reviewed: Normal esophagus. Gastritis with erosions erythema and friability. Multiple biopsies taken at that time. Normal duodenum. Was diagnosed with PE 06/2024 and placed on Eliquis. Has had worsened anemia, melena, hematemesis x 1 last week and dyspnea on exertion without hypoxia - No chest pain or chest pressure at time of assessment. Troponin is normal. Will keep a transfusion threshold of 8 given prior cardiac disease. Currently does not meet transfusion threshold, will trend H&H every 6 hours and transfuse for hemoglobin less than 8. 2 units held GI following, anticipate endoscopy CAD, history of bypass, exertional shortness of breath Aspirin and oral medications held for GI bleed. Carvedilol temporarily converted to metoprolol 2.5 mg every 6 hours to prevent beta-connie withdrawal Exertional, no symptoms at rest. These transiently improved around blood transfusion but have recurred as hemoglobin is decreased Troponin is normal EKG normal sinus rhythm without territorial signs of ischemia Suspect demand and due to anemia. Treat these as above. Follow on PCU. PE Patient has a subacute PE diagnosed at [facility] 06/2024 and for which she was started on apixaban. Dopplers rdo not show residual DVT. Will hold eliquis at this time for acute bleeding, and re-assessment per GI re-evaluation. Ideally pt will be able to be restarted once suspected UGIB is controlled .She is not unstable. No residual DVT to indiciate emergent IVC filter referral No hypoxia No tachycardia Resume apixaban when GI bleeding is controlled Type I DM Patient is on insulin pump with a basal rate of 1.4 and a total daily insulin dose of 70 units. Based on 70 unit total daily dose has been converted to basal bolus while inpatient Continue D5 LR while n.p.o. Lantus 18 units twice daily dose reduced while n.p.o. to 15 units, CF 25, carb ratio 10 Goal BSG [id number] Discontinue insulin pump while inpatient DVT prophylaxis: SCDs, pharmacal prophylaxis contraindicated in the setting of acute bleeding Disposition: PCU CODE STATUS: Full code Diet: N.p.o. (2) Pulmonary embolism: (3) Chronic kidney disease, stage III (moderate): (4) Diabetes type 1, controlled: (5) S/P CABG (coronary artery bypass graft): History of Present Illness Primary Care Provider: Michelle Bach Queenie Knutson is a 69-year-old female with a past medical history of gastritis anemia and suspected upper GI bleed, type I DM, CABG, CKD 3, ataxic gait, diabetic neuropathy, Charcot foot, obesity, hypertension, statin myopathy, hyperlipidemia who was diagnosed with a PE and started anticoagulation 1 month ago Patient was seen in GI follow-up for worsening anemia, melena, 1 episode of hematemesis 1 week ago. She has become increasingly fatigued and had some chest pressure/pain with dyspnea. She was subsequently referred to the ER for further evaluation. Case was discussed with on-call GI at time of referral and was noted that she may be a candidate for push enteroscopy. If stable and either push enteroscopy is not pursued or unrevealing will have capsule endoscopy set up as outpatient. Patient was at [facility] and diagnosed with PE last month. Hemoglobin 06/20/2020 410.4, decreased 07/11 to 7.6. She was ordered 1 unit of transfusion 07/11, unclear immediate posttransfusion hemoglobin from record review however on 07/20 was 7.8. Continues to be fatigued with melena and a hemoglobin of 8.2 at GI follow-up 07/23 as noted. Zenia is seen at the bedside with her orin Romero. She reports in the last few weeks she has been very short of breath with exertion and going up and down steps despite her cristina epulse ox being 98-99%. She was diagnosed with a PE last m [facility], but has not been hypoxic and has been taking eliquis. She endorses chest tightness and 'feels like I'm going to have a heart attack the shortness of breath is so bad' going up the stairs. She got a unit of blood last week which seemed to help this a little bit, but symptoms have slowly worsened again as her hemoglobin has dropped. No pain at rest. Last endoscopy with friabl emucousa/gastritis. She has had a history of blood transfusion and iron transfusion every few months. No nausea/vomtiing currently. last hemetemesis was last week bright red blood. +Melena, stools have been dark in color. Tarry with miralax. Thinks black Lightheadedness and dyspnea are worse in thi spast week. Leg dopplers without DVT Took apixaban this morning Uses a GCM. 70 units a total. Basal rate of ~1.2u/hour. Masx bolus 15units. BSG currently 97. Medical History: Reviewed Medications: Reviewed Surgical History: Reviewed Family history: Reviewed Allergies: Reviewed Social History: no tobacco or ETOH Code Status: Full code Allergies Allergy/AdvReac Type Severity Reaction Status Date / Time lansoprazole Allergy Mild GI SYMPTOMS Verified 07/23/24 08:27 lisinopril Allergy Mild cough Verified 07/23/24 08:27 metoclopramide Allergy Mild ANXIOUS Verified 07/23/24 08:27 ibuprofen Allergy Unknown NOT Verified 07/23/24 08:27 SUPPOSED TO TAKE-KIDNEY PROBLEMS naproxen Allergy Unknown NOT Verified 07/23/24 08:27 SUPPOSED TO TAKE D/T KIDNEY PROBLEMS [id number]-QCG-RyV Reductase AdvReac Intermediate muscle Verified 07/23/24 08:27 Inhibitor cramps Home Medications Medication Instructions Recorded Confirmed Type blood sugar diagnostic (Contour #10 ea 04/20/19 07/23/24 History Next Test Strips) calcium 333 mg 1 tab PO HS 03/25/21 07/23/24 History (carbonate)-magnesium 133 mg (oxide)-zinc 5 mg tablet cyanocobalamin (vitamin B-12) 2,500 mcg PO QAM 03/25/21 07/23/24 History 2,500 mcg tablet losartan 100 mg tablet 100 mg PO QAM 03/25/21 07/23/24 History aspirin 81 mg tablet,delayed 81 mg PO QAM 02/16/23 07/23/24 History release (Adult Low Dose Aspirin) ezetimibe 10 mg tablet 10 mg PO QAM 08/11/23 07/23/24 History denosumab 60 mg/mL subcutaneous 60 mg subcut Q6MO #1 mL 10/03/23 07/23/24 Rx syringe (Prolia) albuterol sulfate 0.63 mg/3 mL 0.63 mg inhalation Q4H PRN sob 11/07/23 07/23/24 History solution for nebulization amlodipine 10 mg tablet (Norvasc) 10 mg PO QAM 11/07/23 07/23/24 History folic acid 1 mg tablet 1 mg PO HS 11/07/23 07/23/24 History famotidine 40 mg tablet 40 mg PO BID GERD #60 tabs 11/08/23 07/23/24 Rx blood-glucose sensor (Dexcom G6 11/11/23 07/23/24 History Sensor device) carvedilol 12.5 mg tablet 12.5 mg PO BID 11/11/23 07/23/24 History spironolactone 25 mg tablet 25 mg PO QAM 11/11/23 07/23/24 History triamcinolone acetonide 0.1 % 1 applic topical DAILY #30 grams 01/17/24 07/23/24 Rx topical ointment torsemide 10 mg tablet 10 mg PO QAM PRN prn 03/28/24 07/23/24 History calcitriol 0.25 mcg capsule 0.25 mcg PO HS #30 caps 04/03/24 07/23/24 Rx esomeprazole magnesium 40 mg 40 mg PO BID #60 caps 05/02/24 07/23/24 Rx capsule,delayed release evolocumab 140 mg/mL subcutaneous 140 mg subcut UD #6 mL 05/31/24 07/23/24 Rx pen injector (Grant Craig) insulin lispro 100 unit/mL 70 unit subcut DAILY 06/04/24 07/23/24 History subcutaneous solution (Humalog U-100 Insulin) Tirosint 125 mcg capsule 125 mcg PO DAILY #90 caps 06/11/24 07/23/24 Rx (levothyroxine) apixaban 5 mg tablet (Eliquis) 5 mg PO BID 07/03/24 07/23/24 History Past Med/Surg History Problem List (Updated 07/23/24 @ 14:13 by Amilcar Treviño MD) Pulmonary embolism Upper GI bleed Chronic anticoagulation (Acute) Chest pain, exertional (Acute) Anemia (Acute) SOB (shortness of breath) (Acute) Change in bowel habits Anemia CAD (coronary artery disease) Lichen sclerosus of vulva Abnormal CT scan 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 Bah 2016 left Cochlear Attract Anemia Constipation GERD (gastroesophageal reflux disease) Statin myopathy Meniere's disease of left ear Sensorineural hearing loss (SNHL) of left ear with restricted hearing of right ear Osteoporosis Diabetes type 1, controlled Foot drop Hypoglycemia unawareness in type 1 diabetes mellitus Depression with anxiety Ataxic gait Diabetic autonomic neuropathy associated with type 1 diabetes mellitus Diabetic nephropathy associated with type 1 diabetes mellitus Dysesthesia Dyslipidemia Gastroparesis History of stroke Hypothyroidism Loss of protective sensation of skin of foot Proliferative diabetic retinopathy associated with type 1 diabetes mellitus S/P CABG (coronary artery bypass graft) Vitamin D deficiency Hypertension Chronic kidney disease, stage III (moderate) Diabetic peripheral neuropathy associated with type 1 diabetes mellitus Medical History Status post placement of bone anchored hearing aid (BAHA) Sensorineural hearing loss (SNHL) of left ear with restricted hearing of right ear Proliferative diabetic retinopathy associated with type 1 diabetes mellitus Dyslipidemia Diabetic nephropathy associated with type 1 diabetes mellitus Diabetic peripheral neuropathy associated with type 1 diabetes mellitus Depression with anxiety Ataxic gait Chronic obstructive pulmonary disease Meniere disease of left ear Osteoporosis Hypothyroidism Hypertension History of CVA (cerebrovascular accident) GERD (gastroesophageal reflux disease) Gastroparesis Foot drop, left Chronic kidney disease, stage 3 Anemia Migraines Arthritis Degenerative disc disease Barretts esophagus Insulin pump in place Charcot's joint of foot in type 1 diabetes mellitus History of obesity Surgical History History of kyphoplasty History of cardiac cath Femur fracture, left History of esophagogastroduodenoscopy (EGD) History of colonoscopy History of bladder surgery History of tibial fracture History of tooth extraction History of cataract surgery History of carpal tunnel release Hx of hysterectomy Hx of tubal ligation Hx of CABG Family History Sister Breast cancer Hypertension Brother Diabetes Hypertension Other No family history of adverse response to anesthesia Denies family history of Ovarian cancer Prostate cancer Myocardial infarction Colorectal cancer Social History Smoking Status: Never smoker Second Hand Exposure: No; Do You Dip or Chew Tobacco: No; Hx Alcohol Use: No Hx Substance Use: No Preferred Language: [place] Visual Impairment: No Limitations Hearing Ability: Cochlear Implant Certified Mortician Required: No Beliefs That Will Affect Care: None marital status: Unknown Current Living Situation: Significant Other current occupational status: retired Feels Safe at Home: Yes Diet: regular caffeine: Yes (12 oz decaf coffee daily) Physical Activity Frequency: Does not Exercise Seatbelt Use: always Do you think of yourself as: straight/heterosexual Gender Identity: Female Assistive Devices: Cane and Glasses Physical Exam Physical Exam: General: A&Ox3. NAD. Cooperative. HEENT: Atraumatic, normocephalic. Pulm: CTAB A&P. -wheezes, -rales, -rhonchi. Symmetrical chest rise. No increased work of breathing. No respiratory distress. Cardiac: RRR, -mrg. Radial pulses intact and symmetrical. Abdominal: Nontender, nondistended, soft. BS present. Ext: warm, dry. Mild bilateral ankle edema Results & Data Results & Data Vital Signs (Past 12 Hours) Vital Signs Temp Pulse Resp BP Pulse Ox O2 Del Method O2 Flow Rate 07/23/24 12:08 79 19 161/74 H 97 07/23/24 11:02 77 15 158/79 H 98 07/23/24 10:50 77 16 96 07/23/24 10:48 154/75 H 07/23/24 10:48 78 15 154/75 H 96 07/23/24 10:07 81 14 153/95 H 98 Room Air 07/23/24 10:05 98 Room Air 07/23/24 10:05 78 16 98 Room Air 07/23/24 10:05 98 Room Air 0 07/23/24 10:04 79 07/23/24 09:33 36.3 C L 84 20 149/70 H 98 Room Air PG Care Time/CCT Total # of Minutes Spent Total Time Spent with Patient: Total time spent is greater than 50% in coordination of care (as documented) at patient's floor/unit and/or counseling patient: Coding Level of Care Code 06431 INT INP/OBS CARE 375MIN Diagnoses Upper GI bleed K92.2 Pulmonary embolism I26.99 Chronic kidney disease, stage III (moderate) N18.3 Diabetes type 1, controlled E10.9 S/P CABG (coronary artery bypass graft) Z95.1
--- NOTE | 2024-07-23 14:10 | Gastrointestinal Consultation ---
Date of Consultation July 23, 2024 Assessment & Plan (1) Upper GI bleed: 69 year old female w/ history of T1DM, HTN, dyslipidemia, CABG, CKD-3, ataxic gait, Charcot foot, obesity, hypertension, recently diagnosed w/ a PE and started eliquis about a month ago who presents through the ED w/ acute on ch ronic anemia and report of hematemesis a week ago and black stools currently May have clear liquids today NPO after midnight EGD in the AM Hold Eliquis Trend H&H Monitor and document GI output Transfuse PRN per primary team IV PPI BID No NSAIDS, ETOH, tobacco We appreciate assistance in the management of any serological abnormality and corrections to include: hemoglobin >7, INR <2, platelets >50,000, potassium levels >3.5 but <5.3, and sodium levels within 5 points of the reference range prior to endoscopic evaluation. Thank you for allowing us to participate in the care of this patient. Please call with any acute changes, questions or concerns. Please see addendum below with additional recommendation from my supervising physician. I spent a total of 60 minutes on the date of service in review of patient's record, and previously obtained information in person and appropriate medical visit, discussion and education of plan, with patient and/or caregiver, placing orders for tests/referral/procedures as medically necessary and documentation of pertinent clinical information in patient's medical records for their visit today. Supervising Physician Co-Signing Physician Notes Patient seen and evaluated with PRINCIPAL TECHNICAL WRITER agree with plan of care patient had a recent upper endoscopy and a colonoscopy the EGD showed erosions the colonoscopy showed hemorrhoids she states that she had a recent episode of hematemesis she is also been complaining of having dark-colored stools there was a fall in her H&H also from a baseline of 10 to now around 8 at the parent time I would 1. Placed on PPI twice daily 2. Follow H&H 3. Plan for upper endoscopy in a.m. and further recommendations after upper endoscopy Thank you for allowing us to take part in the care of your patient we will continue to follow her with you History of Present Illness Reason for Consultation: anemia, history of hematemesis, black stools Requesting Physician: Dr. Amilcar Treviño Attending Physician: Dr. Amilcar Treviño History of Present Illness 69 year old female w/ history of T1DM, HTN, dyslipidemia, CABG, CKD-3, ataxic gait, Charcot foot, obesity, hypertension, recently diagnosed w/ a PE and started eliquis about a month ago who presents through the ED w/ acute on chronic anemia and report of GI bleeding. GI was asked to evaluate. She suggest she has been having intermittent black stools for a few weeks. About a week or so ago she had an episode of emesis which was bloody - bright red blood. Denies any further emesis since the initial bout of vomiting. However, since, her stools have appeared more frequent and black. She endorses progressive fatigue, SOB and some epigastric discomfort. 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 - Gastritis, characterized by erosions, erythema and friability. - Multiple biopsies were obtained in the gastric antrum, angularis and body. - Normal examined duodenum. Colonoscopy 2023: - Non-bleeding internal non-thrombosed non-prolapsed hemorrhoids. - The examination was otherwise normal on direct and retroflexion views. - No specimens collected. Allergies Allergy/AdvReac Type Severity Reaction Status Date / Time lansoprazole Allergy Mild GI SYMPTOMS Verified 07/23/24 08:27 lisinopril Allergy Mild cough Verified 07/23/24 08:27 metoclopramide Allergy Mild ANXIOUS Verified 07/23/24 08:27 ibuprofen Allergy Unknown NOT Verified 07/23/24 08:27 SUPPOSED TO TAKE-KIDNEY PROBLEMS naproxen Allergy Unknown NOT Verified 07/23/24 08:27 SUPPOSED TO TAKE D/T KIDNEY PROBLEMS [id number] Reductase AdvReac Intermediate muscle Verified 07/23/24 08:27 Inhibitor cramps Home Medications Medication Instructions Recorded Confirmed Type blood sugar diagnostic (Contour #10 ea 04/20/19 07/23/24 History Next Test Strips) calcium 333 mg 1 tab PO HS 03/25/21 07/23/24 History (carbonate)-magnesium 133 mg (oxide)-zinc 5 mg tablet cyanocobalamin (vitamin B-12) 2,500 mcg PO QAM 03/25/21 07/23/24 History 2,500 mcg tablet losartan 100 mg tablet 100 mg PO QAM 03/25/21 07/23/24 History aspirin 81 mg tablet,delayed 81 mg PO QAM 02/16/23 07/23/24 History release (Adult Low Dose Aspirin) ezetimibe 10 mg tablet 10 mg PO QAM 08/11/23 07/23/24 History denosumab 60 mg/mL subcutaneous 60 mg subcut Q6MO #1 mL 10/03/23 07/23/24 Rx syringe (Prolia) albuterol sulfate 0.63 mg/3 mL 0.63 mg inhalation Q4H PRN sob 11/07/23 07/23/24 History solution for nebulization amlodipine 10 mg tablet (Norvasc) 10 mg PO QAM 11/07/23 07/23/24 History folic acid 1 mg tablet 1 mg PO HS 11/07/23 07/23/24 History famotidine 40 mg tablet 40 mg PO BID GERD #60 tabs 11/08/23 07/23/24 Rx blood-glucose sensor (Dexcom G6 11/11/23 07/23/24 History Sensor device) carvedilol 12.5 mg tablet 12.5 mg PO BID 11/11/23 07/23/24 History spironolactone 25 mg tablet 25 mg PO QAM 11/11/23 07/23/24 History triamcinolone acetonide 0.1 % 1 applic topical DAILY #30 grams 01/17/24 07/23/24 Rx topical ointment torsemide 10 mg tablet 10 mg PO QAM PRN prn 03/28/24 07/23/24 History calcitriol 0.25 mcg capsule 0.25 mcg PO HS #30 caps 04/03/24 07/23/24 Rx esomeprazole magnesium 40 mg 40 mg PO BID #60 caps 05/02/24 07/23/24 Rx capsule,delayed release evolocumab 140 mg/mL subcutaneous 140 mg subcut UD #6 mL 05/31/24 07/23/24 Rx pen injector (Grant Craig) insulin lispro 100 unit/mL 70 unit subcut DAILY 06/04/24 07/23/24 History subcutaneous solution (Humalog U-100 Insulin) Tirosint 125 mcg capsule 125 mcg PO DAILY #90 caps 06/11/24 07/23/24 Rx (levothyroxine) apixaban 5 mg tablet (Eliquis) 5 mg PO BID 07/03/24 07/23/24 History Patient History Medical History Status post placement of bone anchored hearing aid (BAHA) Sensorineural hearing loss (SNHL) of left ear with restricted hearing of right ear Proliferative diabetic retinopathy associated with type 1 diabetes mellitus Dyslipidemia Diabetic nephropathy associated with type 1 diabetes mellitus Diabetic peripheral neuropathy associated with type 1 diabetes mellitus Depression with anxiety Ataxic gait Chronic obstructive pulmonary disease Meniere disease of left ear Osteoporosis Hypothyroidism Hypertension History of CVA (cerebrovascular accident) GERD (gastroesophageal reflux disease) Gastroparesis Foot drop, left Chronic kidney disease, stage 3 Anemia Migraines Arthritis Degenerative disc disease Barretts esophagus Insulin pump in place Charcot's joint of foot in type 1 diabetes mellitus History of obesity Surgical History History of kyphoplasty History of cardiac cath Femur fracture, left History of esophagogastroduodenoscopy (EGD) History of colonoscopy History of bladder surgery History of tibial fracture History of tooth extraction History of cataract surgery History of carpal tunnel release Hx of hysterectomy Hx of tubal ligation Hx of CABG Family History Sister Breast cancer Hypertension Brother Diabetes Hypertension Other No family history of adverse response to anesthesia Denies family history of Ovarian cancer Prostate cancer Myocardial infarction Colorectal cancer Social History Smoking Status: Never smoker Second Hand Exposure: No; Do You Dip or Chew Tobacco: No; Hx Alcohol Use: No Hx Substance Use: No Preferred Language: Israeli Communication Ability: Effective Visual Impairment: No Limitations Hearing Ability: Cochlear Implant [employer] Supervisor Required: No Beliefs That Will Affect Care: None marital status: Unknown Current Living Situation: Significant Other current occupational status: retired Other Information That Helps Us Care for You: No Feels Safe at Home: Yes Safety Concerns: Feels Safe At This Time Diet: regular caffeine: Yes (12 oz decaf coffee daily) Physical Activity Frequency: Does not Exercise Seatbelt Use: always Do you think of yourself as: straight/heterosexual Gender Identity: Female Assistive Devices: Cane, CPAP, Glasses and Walker Review of Systems Review of Systems: All other findings negative except as noted in HPI. Physical Exam Constitutional: WD/WN, vitals as above Respiratory: normal respiratory effort, lungs clear to auscultation Cardiovascular: RRR, no murmur, no edema Gastrointestinal (Abdomen): normal bowel sounds, soft, nontender, no he patosplenomegaly Skin: no rashes, warm and dry Results & Data Vital Signs (Past 12 Hours) Vital Signs Temp Pulse Resp BP Pulse Ox O2 Del Method O2 Flow Rate 07/23/24 12:08 79 19 161/74 H 97 07/23/24 11:02 77 15 158/79 H 98 07/23/24 10:50 77 16 96 07/23/24 10:48 154/75 H 07/23/24 10:48 78 15 154/75 H 96 07/23/24 10:07 81 14 153/95 H 98 Room Air 07/23/24 10:05 98 Room Air 07/23/24 10:05 78 16 98 Room Air 07/23/24 10:05 98 Room Air 0 07/23/24 10:04 79 07/23/24 09:33 36.3 C L 84 20 149/70 H 98 Room Air Laboratory Results 07/23/24 07/23/24 07/23/24 Range/Units 11:21 10:45 09:57 WBC (4.8-10.8) K/ul RBC (4.20-5.40) M/uL Hgb (12.0-16.0) g/dl POC Hgb 9.2 L (12.0-16.0) g/dl Hct (37.0-47.0) % POC Hct 27 L (37-47) % MCV (80.0-100.0) fL MCH (25.0-34.0) pg MCHC (32.0-36.0) g/dL RDW Std Deviation (36.4-46.3) fL RDW Coeff of Dash (11.5-14.5) % Plt Count (130-400) K/uL MPV (9.4-12.4) fL Immature Gran % (Auto) % Neut % (Auto) % Lymph % (Auto) % [place] % (Auto) % Eos % (Auto) % Baso % (Auto) % Neut # (Auto) (1.40-6.50) K/uL Lymph # (Auto) (1.20-3.40) K/uL [place] # (Auto) (0.11-0.59) K/uL Eos # (Auto) (0.00-0.50) K/uL Baso # (Auto) (0.00-0.20) K/uL Immature Gran # (Auto) (0.01-0.20) K/uL POC Sodium 139 (135-144) mmol/L Sodium (136-145) mmol/L POC Potassium 4.4 (3.3-5.0) mmol/L Potassium (3.5-5.1) mmol/L POC Chloride 104 (101-112) mmol/L Chloride (98-107) mmol/L Carbon Dioxide (21-32) mmol/L POC Total CO2 24 (24-31) mmol/L Anion Gap (3-11) POC Anion Gap 17.0 (16-25) mmol/L POC BUN 27 H (7-18) mg/dl BUN (6-23) mg/dl Creatinine (0.6-1.2) mg/dl POC Creatinine 1.7 H (0.6-1.3) mg/dl Est Cr Clr Drug Dosing ml/min eGFR BUN/Creatinine Ratio (10-20) Glucose (70-99(Fasting)) mg/dl POC Glucose (other) 163 H (70-99) mg/dl Calcium (8.6-10.3) mg/dl POC Ioniz Calcium [place]ack[place] 1.25 (1.12-1.32) mmol/l Magnesium (1.7-2.4) mg/dl Total Bilirubin (0.2-1.0) mg/dl AST (13-39) U/L ALT (7-52) U/L Alkaline Phosphatase (34-104) U/L Troponin I High Sens (0-14) pg/ml B-Natriuretic Peptide 185 H (0-100) pg/ml Total Protein (6.0-8.3) gm/dl Albumin (3.4-5.0) gm/dl Globulin (2.5-4.0) gm/dl Albumin/Globulin Ratio (0.9-2) Urine Color Yellow Urine Appearance Clear (Clear) Urine pH 7.0 (4.5-7.5) Ur Specific [place] 1.007 (1.000-1.030) Urine Protein Negative (Negative) Urine Glucose (UA) Negative (Negative) Urine Ketones Negative (Negative) Urine Blood Negative (Negative) Urine Nitrite Negative (Negative) Urine Bilirubin Negative (Negative) Urine Urobilinogen Negative (Negative) Ur Leukocyte Esterase Trace H (Negative) Urine WBC (Auto) 0-5 (0-5) /hpf Urine RBC (Auto) 0-2 (0-2) /hpf U Hyaline Cast (Auto) 0-2 (0-2) /lpf U Epithel Cells (Auto) 0-2 (0-2) /hpf Urine Bacteria (Auto) None Seen (None Seen) Blood Type Antibody Screen 07/23/24 07/23/24 Range/Units 09:52 09:50 WBC 7.31 (4.8-10.8) K/ul RBC 2.87 L (4.20-5.40) M/uL Hgb 8.2 L (12.0-16.0) g/dl POC Hgb (12.0-16.0) g/dl Hct 26.3 L (37.0-47.0) % POC Hct (37-47) % MCV 91.6 (80.0-100.0) fL MCH 28.6 (25.0-34.0) pg MCHC 31.2 L (32.0-36.0) g/dL RDW Std Deviation 49.6 H (36.4-46.3) fL RDW Coeff of Dash 14.6 H (11.5-14.5) % Plt Count 302 (130-400) K/uL MPV 11.0 (9.4-12.4) fL Immature Gran % (Auto) 0.3 % Neut % (Auto) 61.9 % Lymph % (Auto) 20.5 % [place] % (Auto) 7.7 % Eos % (Auto) 8.8 % Baso % (Auto) 0.8 % Neut # (Auto) 4.53 (1.40-6.50) K/uL Lymph # (Auto) 1.50 (1.20-3.40) K/uL [place] # (Auto) 0.56 (0.11-0.59) K/uL Eos # (Auto) 0.64 H (0.00-0.50) K/uL Baso # (Auto) 0.06 (0.00-0.20) K/uL Immature Gran # (Auto) 0.02 (0.01-0.20) K/uL POC Sodium (135-144) mmol/L Sodium 138 (136-145) mmol/L POC Potassium (3.3-5.0) mmol/L Potassium 4.4 (3.5-5.1) mmol/L POC Chloride (101-112) mmol/L Chloride 106 (98-107) mmol/L Carbon Dioxide 26 (21-32) mmol/L POC Total CO2 (24-31) mmol/L Anion Gap 6 (3-11) POC Anion Gap (16-25) mmol/L POC BUN (7-18) mg/dl BUN 30 H (6-23) mg/dl Creatinine 1.60 H (0.6-1.2) mg/dl POC Creatinine (0.6-1.3) mg/dl Est Cr Clr Drug Dosing 35.7 ml/min eGFR 34.48 BUN/Creatinine Ratio 18.8 (10-20) Glucose 171 H (70-99(Fasting)) mg/dl POC Glucose (other) (70-99) mg/dl Calcium 9.5 (8.6-10.3) mg/dl POC Ioniz Calcium [place]ackary (1.12-1.32) mmol/l Magnesium 1.9 (1.7-2.4) mg/dl Total Bilirubin 0.4 (0.2-1.0) mg/dl AST 13 (13-39) U/L ALT 10 (7-52) U/L Alkaline Phosphatase 46 (34-104) U/L Troponin I High Sens 8.4 (0-14) pg/ml B-Natriuretic Peptide (0-100) pg/ml Total Protein 6.4 (6.0-8.3) gm/dl Albumin 4.2 (3.4-5.0) gm/dl Globulin 2.2 L (2.5-4.0) gm/dl Albumin/Globulin Ratio 1.9 (0.9-2) Urine Color Urine Appearance (Clear) Urine pH (4.5-7.5) Ur Specific [place] (1.000-1.030) Urine Protein (Negative) Urine Glucose (UA) (Negative) Urine Ketones (Negative) Urine Blood (Negative) Urine Nitrite (Negative) Urine Bilirubin (Negative) Urine Urobilinogen (Negative) Ur Leukocyte Esterase (Negative) Urine WBC (Auto) (0-5) /hpf Urine RBC (Auto) (0-2) /hpf U Hyaline Cast (Auto) (0-2) /lpf U Epithel Cells (Auto) (0-2) /hpf Urine Bacteria (Auto) (None Seen) Blood Type A Positive Antibody Screen NEGATIVE PG Care Time/CCT Total # of Minutes Spent Total Time Spent with Patient: Total time spent is greater than 50% in coordination of care (as documented) at patient's floor/unit and/or counseling patient: Coding Level of Care Code 68633 INT INP/OBS CARE 2/55MIN Diagnoses Upper GI bleed K92.2
[2024-07-23] MEDS ORDERED: GLUCAGON FOR INJ 1 MG VIAL SQ PRN (14:18)
[2024-07-23] MEDS ORDERED: DEXTROSE 50% 50 ML SYRINGE IV PRN (14:18)
[2024-07-23] MEDS ORDERED: GLUCOSE 40% GEL 15 GM TUBE PO PRN (14:18)
[2024-07-23] MEDS ORDERED: CARBOHYDRATES FOR HYPOGLYCEMIA PO PRN (14:18)
[2024-07-23] MEDS ORDERED: GLUCOSE 10 TAB/TUBE PO PRN (14:18)
[2024-07-23] MEDS ORDERED: LANTUS PER UNIT CHARGE SQ ONE (14:21)
[2024-07-23] MEDS ORDERED: SODIUM CHLORIDE 0.9% 50 ML IV PRN ×2 (14:22→21:31)
[2024-07-23] MEDS ORDERED: SODIUM CHLORIDE 0.9% 100 ML IV PRN ×2 (14:22→21:31)
[2024-07-23] MEDS ORDERED: TORSEMIDE 10 MG TAB PO PRN (15:43)
[2024-07-23] MEDS ORDERED: ALBUTEROL HFA 8 GM INHALER INH PRN (15:49)
[2024-07-23] MEDS: PANTOprazole 80 MG in DEXTROSE 5% 100 ML IV STA (15:55)
[2024-07-23] MEDS: INSULIN ASPART PER UNIT CHARGE SC SCH (17:22)
[2024-07-23] MEDS: LANTUS PER UNIT CHARGE SQ SCH (17:23)
[2024-07-23] MEDS: PANTOprazole 40 MG/10 ML SYR IV SCH (20:05)
[2024-07-23 20:36] LABS: Hematocrit (blood only) 24.7 % (37.0-47.0); Hemoglobin 7.7 g/dl (12.0-16.0)
[2024-07-23] MEDS ORDERED: LANTUS PER UNIT CHARGE SQ SCH (21:00)
[2024-07-24 02:36] LABS: Hematocrit (blood only) 26.9 % (37.0-47.0); Hemoglobin 8.6 g/dl (12.0-16.0)
[2024-07-24 02:50] LABS: BUN Creatinine Ratio 17.6 (10-20); Calcium 8.9 mg/dl (8.6-10.3); Creatinine Clr Calc Pharmacy 38.2 ml/min; Potassium 4.8 mmol/L (3.5-5.1)
[2024-07-24 03:53] LABS: Basophils # (auto) 0.05 K/uL (0.00-0.20); Basophils % (auto) 0.8 %; Eosinophils # (auto) 0.51 K/uL (0.00-0.50); Eosinophils % (auto) 7.8 %; Hematocrit (blood only) 26.7 % (37.0-47.0); Hemoglobin 8.6 g/dl (12.0-16.0); Immature Granulocytes # (auto) 0.03 K/uL (0.01-0.20); Immature Granulocytes % (auto) 0.5 %; Lymphocytes # (auto) 1.71 K/uL (1.20-3.40); Lymphocytes % (auto) 26.3 %; Mean Corpuscular Hemoglobin 28.8 pg (25.0-34.0); Mean Corpuscular Hgb Conc 32.2 g/dL (32.0-36.0); Mean Corpuscular Volume 89.3 fL (80.0-100.0); Mean Platelet Volume 11.4 fL (9.4-12.4); Monocytes # (auto) 0.66 K/uL (0.11-0.59); Monocytes % (auto) 10.1 %; Neutrophils # (auto) 3.55 K/uL (1.40-6.50); Neutrophils % (auto) 54.5 %; Platelet Count 251 K/uL (130-400); RDW Coefficient of Variation 15.9 % (11.5-14.5); Red Blood Count 2.99 M/uL (4.20-5.40); White Blood Count 6.51 K/ul (4.8-10.8)
[2024-07-24 04:48] LABS: Hematocrit (blood only) 26.9 % (37.0-47.0); Hemoglobin 8.6 g/dl (12.0-16.0)
[2024-07-24] MEDS: LANTUS PER UNIT CHARGE SQ SCH (07:52)
--- NOTE | 2024-07-24 08:39 | Anesthesiology Consultation ---
Date of Service July 24, 2024 Assessment & Plan Chart Review Chart Review: Acceptable Risk for Surgery and Patient NOT seen in Pre Admission Testing Consults Requested none ASA ASA4 Proposed Anesthesia Anesthesia Type: MAC History Surgery Operation Date: 07/24/24 16:30 Proposed Procedures p Esophagogastroduodenoscopy Corina Arriaga MD Height/Weight Height: 5 ft 4 in Weight: 90.8 kg Allergies Allergy/AdvReac Type Severity Reaction Status Date / Time lansoprazole Allergy Mild GI SYMPTOMS Verified 07/23/24 08:27 lisinopril Allergy Mild cough Verified 07/23/24 08:27 metoclopramide Allergy Mild ANXIOUS Verified 07/23/24 08:27 ibuprofen Allergy Unknown NOT Verified 07/23/24 08:27 SUPPOSED TO TAKE-KIDNEY PROBLEMS naproxen Allergy Unknown NOT Verified 07/23/24 08:27 SUPPOSED TO TAKE D/T KIDNEY PROBLEMS [id number] Reductase AdvReac Intermediate muscle Verified 07/23/24 08:27 Inhibitor cramps Medications Home Medications Medication Instructions Recorded Confirmed Last Taken blood sugar diagnostic (Contour #10 ea 04/20/19 07/23/24 Unknown Next Test Strips) calcium 333 mg 1 tab PO HS 03/25/21 07/23/24 04/08/24 (carbonate)-magnesium 133 mg (oxide)-zinc 5 mg tablet cyanocobalamin (vitamin B-12) 2,500 mcg PO QAM 03/25/21 07/23/24 04/08/24 2,500 mcg tablet losartan 100 mg tablet 100 mg PO QAM 03/25/21 07/23/24 04/10/24 05:30 aspirin 81 mg tablet,delayed 81 mg PO QAM 02/16/23 07/23/24 04/10/24 05:30 release (Adult Low Dose Aspirin) ezetimibe 10 mg tablet 10 mg PO QAM 08/11/23 07/23/24 04/10/24 05:30 denosumab 60 mg/mL subcutaneous 60 mg subcut Q6MO #1 mL 10/03/23 07/23/24 Unknown syringe (Prolia) albuterol sulfate 0.63 mg/3 mL 0.63 mg inhalation Q4H PRN sob 11/07/23 07/23/24 11/14/23 solution for nebulization amlodipine 10 mg tablet (Norvasc) 10 mg PO QAM 11/07/23 07/23/24 04/10/24 05:30 folic acid 1 mg tablet 1 mg PO HS 11/07/23 07/23/24 04/08/24 famotidine 40 mg tablet 40 mg PO BID GERD #60 tabs 11/08/23 07/23/24 04/10/24 05:30 blood-glucose sensor (Dexcom G6 11/11/23 07/23/24 Unknown Sensor device) carvedilol 12.5 mg tablet 12.5 mg PO BID 11/11/23 07/23/24 04/10/24 05:30 spironolactone 25 mg tablet 25 mg PO QAM 11/11/23 07/23/24 04/09/24 triamcinolone acetonide 0.1 % 1 applic topical DAILY #30 grams 01/17/24 07/23/24 04/09/24 topical ointment torsemide 10 mg tablet 10 mg PO QAM PRN prn 03/28/24 07/23/24 Unknown calcitriol 0.25 mcg capsule 0.25 mcg PO HS #30 caps 04/03/24 07/23/24 04/08/24 esomeprazole magnesium 40 mg 40 mg PO BID #60 caps 05/02/24 07/23/24 Unknown capsule,delayed release evolocumab 140 mg/mL subcutaneous 140 mg subcut UD #6 mL 05/31/24 07/23/24 Unknown pen injector (Grant Craig) insulin lispro 100 unit/mL 70 unit subcut DAILY 06/04/24 07/23/24 Unknown subcutaneous solution (Humalog U-100 Insulin) Tirosint 125 mcg capsule 125 mcg PO DAILY #90 caps 06/11/24 07/23/24 Unknown (levothyroxine) apixaban 5 mg tablet (Eliquis) 5 mg PO BID 07/03/24 07/23/24 Unknown Active Medications Generic Name Dose Route Start Last Admin Trade Name Freq PRN Reason Stop Dose Admin Pantoprazole Sodium 40 mg in 10 mls @ 5 mls/min 07/23/24 21:00 07/23/24 20:05 Protonix IV 08/22/24 20:59 5 mls/min BID BAMBI Administration Insulin Aspart 0 units 07/23/24 16:30 07/23/24 20:20 Insulin Aspart Per Unit Charge SC 08/22/24 16:29 3 units ACHS BAMBI Administration Past Medical History Medical History Status post placement of bone anchored hearing aid (BAHA) Sensorineural hearing loss (SNHL) of left ear with restricted hearing of right ear Proliferative diabetic retinopathy associated with type 1 diabetes mellitus Dyslipidemia Diabetic nephropathy associated with type 1 diabetes mellitus Diabetic peripheral neuropathy associated with type 1 diabetes mellitus Depression with anxiety Ataxic gait Chronic obstructive pulmonary disease Meniere disease of left ear Osteoporosis Hypothyroidism Hypertension History of CVA (cerebrovascular accident) GERD (gastroesophageal reflux disease) Gastroparesis Foot drop, left Chronic kidney disease, stage [address] Menendez Anemia iron infusions, Cancer [facility], last dose 03/27/2024 Migraines Arthritis Degenerative disc disease Barretts esophagus Insulin pump in place with dexcom Charcot's joint of foot in type 1 diabetes mellitus History of obesity mod.-severe pulm. hypertension ASCVD Ao HLD CAD s/p CABG Exercise / Class Metabolic Activity III < 4 Walking/Shop/Light housework Past Family History Family History Sister Breast cancer Hypertension Brother Diabetes Hypertension Other No family history of adverse response to anesthesia Denies family history of Ovarian cancer Prostate cancer Myocardial infarction Colorectal cancer Past Surgical History Surgical History History of kyphoplasty History of cardiac cath 2021 [place], no stents Femur fracture, left ORIF femur fx History of esophagogastroduodenoscopy (EGD) History of colonoscopy History of bladder surgery bladder tack History of tibial fracture left>surgery to repair History of tooth extraction History of cataract surgery rt/left History of carpal tunnel release Hx of hysterectomy Hx of tubal ligation x 2 Hx of CABG 1 vessel>at age 57 at [facility] Past Anesthesia History No Hx of Anesthesia Complications and No Family Hx of Anesthesia Complications History of PONV No Hx of PONV and No Hx of Motion Sickness Social History Smoking Status: Never smoker Do You Dip or Chew Tobacco: No Hx Alcohol Use: No Hx Substance Use: No substance use type: does not use Physical Exam Vital Signs Last Vital Signs Temp 36.9 C 07/24/24 03:10 Pulse 85 07/24/24 03:10 Resp 16 07/24/24 03:10 BP 135/70 07/24/24 03:10 Pulse Ox 96 07/24/24 03:10 O2 Del Method Room Air 07/24/24 03:10 O2 Flow Rate 0 07/23/24 10:05 Testing Laboratory Results 07/24/24 04:26 07/24/24 01:56 Urine Color Yellow 07/23/24 10:45 Urine Appearance Clear (Clear) 07/23/24 10:45 Urine pH 7.0 (4.5-7.5) 07/23/24 10:45 Ur Specific [place] 1.007 (1.000-1.030) 07/23/24 10:45 Urine Protein Negative (Negative) 07/23/24 10:45 Urine Glucose (UA) Negative (Negative) 07/23/24 10:45 Urine Ketones Negative (Negative) 07/23/24 10:45 Urine Nitrite Negative (Negative) 07/23/24 10:45 Ur Leukocyte Esterase Trace (Negative) H 07/23/24 10:45 Urine WBC (Auto) 0-5 /hpf (0-5) 07/23/24 10:45 Urine RBC (Auto) 0-2 /hpf (0-2) 07/23/24 10:45 U Hyaline Cast (Auto) 0-2 /lpf (0-2) 07/23/24 10:45 U Epithel Cells (Auto) 0-2 /hpf (0-2) 07/23/24 10:45 Urine Bacteria (Auto) None Seen (None Seen) 07/23/24 10:45 Blood Type A Positive 07/23/24 09:52 Antibody Screen NEGATIVE 07/23/24 09:52 07/24/24 07:20 POC Glucose 279 H Electrocardiogram Date: 07/23/24 Findings: + NSR @ Chest X-Ray Date: 07/23/24 Findings: + cardiomegaly (moderate) and + infiltrate (subtle B/L lower lung densities;mild infectious process vs pulm. edema) Echocardiogram Date: 01/28/23 EF: 55% LV Function: normal RWMA: + none Other Findings: + LVH (mild) Valvular Disease: + AI (mild) and + MR (mild) [place]-mild TR-mod. RV fxn- mildly decreased
[2024-07-24] MEDS ORDERED: ePHEDrine sulfate 50 MG/ML AMP IV PRN (09:02)
--- NOTE | 2024-07-24 09:30 | GI REPORT ---
[facility] Patient: IRMA LEVIN : 1955 Sex at : Female Age: 69 Years Procedure: Upper GI endoscopy Date: 07/24/2024 Attending Physician: Moo Arriaga MD Referring MD: Referred Self Indications: - Anemia Medications: - Monitored Anesthesia Care Complications: - No immediate complications. Estimated Blood Loss: - Estimated blood loss: None. Procedure: - The egd scope was introduced through the mouth and advanced to the second part of the duodenum. - The upper GI endoscopy was accomplished with ease. 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 Recommendation: - Follow H&H would replace iron with IV iron. If patient is requiring anticoagulation would monitor H&H closely if patient can be taken off anticoagulation would repeat upper endoscopy and treat GAVE with APC Procedure Code(s): - 71812, Esophagogastroduodenoscopy, flexible, transoral; diagnostic, including collection of specimen(s) by brushing or washing, when performed (separate procedure) CPT(R) - 2023 copyright [employer]. All Rights Reserved. The CPT codes, CCI edits and ICD codes generated are intended as suggestions and were generated based on input data. These codes are preliminary and upon steward/stewardess second class review may be revised to meet current compliance and payer requirements. The provider is responsible for the final determination of appropriate codes, and modifiers. Moo Arriaga MD This document has been electronically signed. Note Initiated:07/24/2024 Note Completed:07/24/2024 9:30 AM \\[email or web address]\Provation\Results\LIVE\[id number]
--- NOTE | 2024-07-24 09:32 | Anesthesiology Progress Note ---
Date of Service July 24, 2024 Anesthesia Post Procedure Vital Signs Vital Signs: Temp Pulse Pulse Resp BP BP Pulse Ox 07/24/24 09:24 83 16 102/50 L 99 07/24/24 08:49 36.6 C 87 16 175/80 H 97 07/24/24 08:00 77 07/24/24 03:10 36.9 C 85 16 135/70 96 07/24/24 00:05 36.6 C 83 16 122/87 96 07/23/24 23:18 82 07/23/24 23:14 36.7 C 89 16 168/79 H 98 07/23/24 23:05 36.7 C 84 16 168/79 H 98 07/23/24 23:04 36.7 C 84 16 168/79 H 98 07/23/24 22:35 36.7 C 82 18 139/82 96 07/23/24 22:20 36.6 C 80 18 152/81 H 98 07/23/24 21:59 36.7 C 75 18 143/64 H 96 07/23/24 19:35 36.6 C 82 14 123/62 94 07/23/24 19:23 07/23/24 15:28 36.4 C L 18 155/68 H 97 07/23/24 15:26 18 155/68 H 97 07/23/24 15:19 84 07/23/24 14:59 07/23/24 14:30 78 17 132/65 95 07/23/24 12:08 79 19 161/74 H 97 07/23/24 11:02 77 15 158/79 H 98 07/23/24 10:50 77 16 96 07/23/24 10:48 154/75 H 07/23/24 10:48 78 15 154/75 H 96 07/23/24 10:07 81 14 153/95 H 98 07/23/24 10:05 98 07/23/24 10:05 78 16 98 07/23/24 10:05 98 07/23/24 10:04 79 07/23/24 09:33 36.3 C L 84 20 149/70 H 98 O2 Del Method O2 Flow Rate 07/24/24 09:24 Room Air 07/24/24 08:49 Room Air 07/24/24 08:00 07/24/24 03:10 Room Air 07/24/24 00:05 12/23/24 23:18 07/23/24 23:14 Room Air 07/23/24 23:05 07/23/24 23:04 07/23/24 22:35 07/23/24 22:20 07/23/24 21:59 07/23/24 19:35 Room Air 07/23/24 19:23 Room Air 07/23/24 15:28 Room Air 07/23/24 15:26 Room Air 07/23/24 15:19 07/23/24 14:59 Room Air 07/23/24 14:30 07/23/24 12:08 07/23/24 11:02 07/23/24 10:50 07/23/24 10:48 07/23/24 10:48 07/23/24 10:07 Room Air 07/23/24 10:05 Room Air 07/23/24 10:05 Room Air 07/23/24 10:05 Room Air 0 07/23/24 10:04 07/23/24 09:33 Room Air Transfer of Care Handoff Completed per policy Notes Mental Status: alert / awake / arousable Patient Amnestic to Procedure: Yes Nausea / Vomiting: adequately controlled Pain: adequately controlled Airway Patency, RR, SpO2: stable & adequate BP & HR: stable & adequate Hydration State: stable & adequate Anesthetic Complications: no major complications apparent
[2024-07-24 11:48] LABS: Prothrombin Time 10.4 Seconds (9.0-12.0)
[2024-07-24] MEDS: LIDOCAINE 2% 2 ML VIAL/AMP(20MG/ML) INFIL ONE (12:15)
[2024-07-24] MEDS: PROPOFOL IV EMULSION 10 MG/ML 20 ML VIAL IV ONE (12:15)
[2024-07-24] MEDS: APIXABAN 5 MG TABLET PO SCH (12:57)
[2024-07-24] MEDS: IRON SUCROSE 200 MG in SODIUM CHLORIDE 0.9% 100 ML IV ONE (12:57)
[2024-07-24] MEDS: SPIRONOLACTONE 25 MG TAB PO SCH (17:05)
[2024-07-24] MEDS: LOSARTAN POTASSIUM 50 MG TAB PO SCH (17:06)
--- NOTE | 2024-07-24 17:45 | Hospitalist Progress Note ---
Date of Service July 24, 2024 Assessment & Plan (1) Upper GI bleed: Plan: Assessment: 69-year-old female with a history of type I DM, past bypass without PCI/stents, CKD, neuropathy, friable gastric mucosa with anemia who was admitted for suspected upper GI bleed. She is pending a scope with GI. Patient has been ordered a PPI bolus and twice daily push dosing and is currently NPO. Her case complicated by a PE diagnosed 1 month ago. Eliquis is currently held for bleeding. Dopplers of the lower extremities were obtained and do not show any residual DVT, no indication for emergent IVC evaluation. Patient is not hypoxic. Her shortness of breath and chest discomfort improved around transfusion suggesting anemia as the cause she does not show any labs or EKG abnormalities consistent of ischemic cardiac disease. GI bleed EGD 04/2024 reviewed: Normal esophagus. Gastritis with erosions erythema and friability. Multiple biopsies taken at that time. Normal duodenum. Was diagnosed with PE 06/2024 and placed on Eliquis. Has had worsened anemia, melena, hematemesis x 1 last week and dyspnea on exertion without hypoxia - No chest pain or chest pressure at time of assessment. Troponin is normal. Will keep a transfusion threshold of 8 given prior cardiac disease. Currently does not meet transfusion threshold, will trend H&H every 6 hours and transfuse for hemoglobin less than 8. 2 units held GI: Endoscopy did not show any GI bleed. GI stated patient can resume anticoagulation. Will closely monitor hemoglobin. If it decreases will need to hold eliquis. 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 But will need to be on eliquis at least for 3-6 months. Now it appears this Pulmonary embolism was un-provoked , so this may need to be life long if she tolerates it. CAD, history of bypass, exertional shortness of breath Aspirin and oral medications held for GI bleed. Carvedilol temporarily converted to metoprolol 2.5 mg every 6 hours to prevent beta-connie withdrawal Exertional, no symptoms at rest. These transiently improved around blood transfusion but have recurred as hemoglobin is decreased Troponin is normal EKG normal sinus rhythm without territorial signs of ischemia Suspect demand and due to anemia. Treat these as above. Follow on PCU. PE Patient has a subacute PE diagnosed at [facility] 06/2024 and for which she was started on apixaban. Dopplers rdo not show residual DVT. Will hold eliquis at this time for acute bleeding, and re-assessment per GI re-evaluation. Ideally pt will be able to be restarted once suspected UGIB is controlled .She is not unstable. No residual DVT to indiciate emergent IVC filter referral No hypoxia No tachycardia Resumed apixaban Type I DM Patient is on insulin pump with a basal rate of 1.4 and a total daily insulin dose of 70 units. Based on 70 unit total daily dose has been converted to basal bolus while inpatient Continue D5 LR while n.p.o. Lantus 18 units twice daily dose reduced while n.p.o. to 15 units, CF 25, carb ratio 10 Goal BSG [id number] Discontinue insulin pump while inpatient DVT prophylaxis: SCDs, pharmacal prophylaxis contraindicated in the setting of acute bleeding Disposition: PCU CODE STATUS: Full code (2) Pulmonary embolism: (3) Chronic kidney disease, stage III (moderate): (4) Diabetes type 1, controlled: (5) S/P CABG (coronary artery bypass graft): Admission and Anticipated Discharge Date Admission Date: July 23, 2024 Subjective Patient reports no signs of GI bleed. Review of Systems Review of Systems: All systems reviewed & are unremarkable except as noted in HPI & below Physical Exam Physical Exam: General: A&Ox3. NAD. Cooperative. HEENT: Atraumatic, normocephalic. Pulm: CTAB A&P. -wheezes, -rales, -rhonchi. Cardiac: RRR, -mrg. Radial pulses intact and symmetrical. Abdominal: Nontender, nondistended, soft. BS present. Ext: warm, Results & Data Results & Data Vital Signs (Past 12 Hours) Vital Signs Temp Pulse Pulse Resp BP Pulse Ox O2 Del Method 07/24/24 16:02 36.7 C 78 18 190/82 H 98 Room Air 07/24/24 14:00 79 07/24/24 11:30 36.9 C 82 18 157/74 H 95 Room Air 07/24/24 09:55 82 16 184/84 H 97 Room Air 07/24/24 09:39 81 16 135/73 95 Room Air 07/24/24 09:24 83 16 102/50 L 99 Room Air 07/24/24 08:49 36.6 C 87 16 175/80 H 97 Room Air 07/24/24 08:00 77 PG Care Time/CCT Total # of Minutes Spent Total Time Spent with Patient: Total time spent is greater than 50% in coordination of care (as documented) at patient's floor/unit and/or counseling patient: Coding Level of Care Code 85318 SUB INP/OBS CARE 2/35MIN Diagnoses Upper GI bleed K92.2 Pulmonary embolism I26.99 Chronic kidney disease, stage III (moderate) N18.3 Diabetes type 1, controlled E10.9 S/P CABG (coronary artery bypass graft) Z95.1
[2024-07-24 18:11] LABS: Hematocrit (blood only) 30.7 % (37.0-47.0); Hemoglobin 9.9 g/dl (12.0-16.0)
[2024-07-24] MEDS: carvediloL 12.5 MG TAB PO SCH (20:17)
[2024-07-25 00:23] LABS: Hematocrit (blood only) 28.5 % (37.0-47.0); Hemoglobin 9.1 g/dl (12.0-16.0)
[2024-07-25] MEDS: LEVOTHYROXINE SODIUM 125 MCG TABLET PO SCH (05:23)
[2024-07-25 06:54] LABS: Basophils # (auto) 0.06 K/uL (0.00-0.20); Basophils % (auto) 0.9 %; Eosinophils # (auto) 0.46 K/uL (0.00-0.50); Hematocrit (blood only) 29.6 % (37.0-47.0); Hemoglobin 9.4 g/dl (12.0-16.0); Immature Granulocytes # (auto) 0.02 K/uL (0.01-0.20); Immature Granulocytes % (auto) 0.3 %; Lymphocytes # (auto) 1.42 K/uL (1.20-3.40); Lymphocytes % (auto) 21.5 %; Mean Corpuscular Hemoglobin 28.1 pg (25.0-34.0); Mean Corpuscular Hgb Conc 31.8 g/dL (32.0-36.0); Mean Corpuscular Volume 88.6 fL (80.0-100.0); Mean Platelet Volume 10.9 fL (9.4-12.4); Monocytes # (auto) 0.74 K/uL (0.11-0.59); Monocytes % (auto) 11.2 %; Neutrophils # (auto) 3.91 K/uL (1.40-6.50); Neutrophils % (auto) 59.1 %; Platelet Count 278 K/uL (130-400); RDW Coefficient of Variation 15.4 % (11.5-14.5); Red Blood Count 3.34 M/uL (4.20-5.40); White Blood Count 6.61 K/ul (4.8-10.8)
[2024-07-25 07:07] LABS: BUN Creatinine Ratio 19.6 (10-20); Calcium 9.4 mg/dl (8.6-10.3); Creatinine Clr Calc Pharmacy 33.9 ml/min; Potassium 4.3 mmol/L (3.5-5.1)
[2024-07-25] MEDS: amLODIPine BESYLATE 5 MG TAB PO SCH (09:01)
[2024-07-25] MEDS: IRON SUCROSE 200 MG in SODIUM CHLORIDE 0.9% 100 ML IV ONE (11:14)
[2024-07-25 12:02] VITALS: BP 125/72; RESP 16; TEMP 97.7; O2SAT 93
[2024-07-25 12:04] LABS: Hematocrit (blood only) 30.4 % (37.0-47.0); Hemoglobin 9.7 g/dl (12.0-16.0)
[2024-07-25 12:14] VITALS: PULSE 78
--- NOTE | 2024-07-25 13:16 | Discharge Summary ---
Discharge Summary Date of Service July 25, 2024 Principal Dx & Hospital Course #1 = Principal Diagnosis (1) Upper GI bleed: Acute blood loss anemia due to suspected GI bleed H&H has fallen to 7.7/24.7 Risk Factor(s): Age, suspected GI bleed, apixaban therapy Treatment: 1 unit of packed red blood cells, GI consultation, IV Protonix, Assessment: 69-year-old female with a history of type I DM, past bypass without PCI/stents, CKD, neuropathy, friable gastric mucosa with anemia who was admitted for suspected upper GI bleed. She is pending a scope with GI. Patient has been ordered a PPI bolus and twice daily push dosing and is currently NPO. Her case complicated by a PE diagnosed 1 month ago. Eliquis is currently held for bleeding. Dopplers of the lower extremities were obtained and do not show any residual DVT, no indication for emergent IVC evaluation. Patient is not hypoxic. Her shortness of breath and chest discomfort improved around transfusion suggesting anemia as the cause she does not show any labs or EKG abnormalities consistent of ischemic cardiac disease. GI bleed EGD 04/2024 reviewed: Normal esophagus. Gastritis with erosions erythema and friability. Multiple biopsies taken at that time. Normal duodenum. Was diagnosed with PE 06/2024 and placed on Eliquis. Has had worsened anemia, melena, hematemesis x 1 last week and dyspnea on exertion without hypoxia - No chest pain or chest pressure at time of assessment. Troponin is normal. Will keep a transfusion threshold of 8 given prior cardiac disease. Currently does not meet transfusion threshold, will trend H&H every 6 hours and transfuse for hemoglobin less than 8. 2 units held GI: Endoscopy did not show any GI bleed. GI stated patient can resume anticoagulation. Will closely monitor hemoglobin. If it decreases will need to hold eliquis. 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 But will need to be on eliquis at least for 3-6 months. Now it appears this Pulmonary embolism was un-provoked , so this may need to be life long if she tolerates it. CAD, history of bypass, exertional shortness of breath Aspirin and oral medications held for GI bleed. Carvedilol temporarily converted to metoprolol 2.5 mg every 6 hours to prevent beta-connie withdrawal Exertional, no symptoms at rest. These transiently improved around blood transfusion but have recurred as hemoglobin is decreased Troponin is normal EKG normal sinus rhythm without territorial signs of ischemia Suspect demand and due to anemia. Treat these as above. Follow on PCU. PE Patient has a subacute PE diagnosed at [facility] 06/2024 and for which she was started on apixaban. Dopplers rdo not show residual DVT. Will hold eliquis at this time for acute bleeding, and re-assessment per GI re-evaluation. Ideally pt will be able to be restarted once suspected UGIB is controlled .She is not unstable. No residual DVT to indiciate emergent IVC filter referral No hypoxia No tachycardia Resumed apixaban Type I DM Patient is on insulin pump with a basal rate of 1.4 and a total daily insulin dose of 70 units. Based on 70 unit total daily dose has been converted to basal bolus while inpatient Continue D5 LR while n.p.o. Lantus 18 units twice daily dose reduced while n.p.o. to 15 units, CF 25, carb ratio 10 Goal BSG [id number] Discontinue insulin pump while inpatient DVT prophylaxis: SCDs, pharmacal prophylaxis contraindicated in the setting of acute bleeding Disposition: PCU CODE STATUS: Full code (2) Pulmonary embolism: (3) Chronic kidney disease, stage III (moderate): (4) Diabetes type 1, controlled: (5) S/P CABG (coronary artery bypass graft): Admission HPI Per Admitting Provider Zenia is a 69-year-old female with a past medical history of gastritis anemia and suspected upper GI bleed, type I DM, CABG, CKD 3, ataxic gait, diabetic neuropathy, Charcot foot, obesity, hypertension, statin myopathy, hyperlipidemia who was diagnosed with a PE and started anticoagulation 1 month ago Patient was seen in GI follow-up for worsening anemia, melena, 1 episode of hematemesis 1 week ago. She has become increasingly fatigued and had some chest pressure/pain with dyspnea. She was subsequently referred to the ER for further evaluation. Case was discussed with on-call GI at time of referral and was noted that she may be a candidate for push enteroscopy. If stable and either push enteroscopy is not pursued or unrevealing will have capsule endoscopy set up as outpatient. Patient was at [facility] and diagnosed with PE last month. Hemoglobin 06/20/2020 410.4, decreased 07/11 to 7.6. She was ordered 1 unit of transfusion 07/11, unclear immediate posttransfusion hemoglobin from record review however on 07/20 was 7.8. Continues to be fatigued with melena and a hemoglobin of 8.2 at GI follow-up 07/23 as noted. Zenia is seen at the bedside with her sabinon Nick. She reports in the last few weeks she has been very short of breath with exertion and going up and down steps despite her cristina epulse ox being 98-99%. She was diagnosed with a PE last month, but has not been hypoxic and has been taking eliquis. She endorses chest tightness and 'feels like I'm going to have a heart attack the shortness of breath is so bad' going up the stairs. She got a unit of blood last week which seemed to help this a little bit, but symptoms have slowly worsened again as her hemoglobin has dropped. No pain at rest. Last endoscopy with friabl emucousa/gastritis. She has had a history of blood transfusion and iron transfusion every few months. No nausea/vomtiing currently. last hemetemesis was last week bright red blood. +Melena, stools have been dark in color. Tarry with miralax. Thinks black Lightheadedness and dyspnea are worse in thi spast week. Leg dopplers without DVT Took apixaban this morning Uses a GCM. 70 units a total. Basal rate of ~1.2u/hour. Masx bolus 15units. BSG currently 97. Medical History: Reviewed Medications: Reviewed Surgical History: Reviewed Family history: Reviewed Allergies: Reviewed Social History: no tobacco or ETOH Code Status: Full code Discharge Plan Discharge Items Patient Disposition: Home - Self-Care Reason For Visit: UGIB, PE Follow-up/Referrals: Michelle Jerome [Primary Care Provider] - Stand-Alone Forms: [facility], Smoking Cessation Medications and DC Order Prescriptions: No Action Prolia 60 mg/mL syringe 60 mg subcut Q6MO Qty: 1 1RF Rx Instructions: Inject 60mg once every 6 months famotidine 40 mg tablet 40 mg PO BID Qty: 60 5RF calcitriol 0.25 mcg capsule 0.25 mcg PO HS Qty: 30 3RF esomeprazole magnesium 40 mg capsule,delayed release(DR/EC) 40 mg PO BID Qty: 60 5RF Repatha SureClick 140 mg/mL pen injector 140 mg subcut UD Qty: 6 3RF Rx Instructions: 140 mg subcut every two weeks; levothyroxine [Tirosint] 125 mcg capsule 125 mcg PO DAILY Qty: 90 1RF cyanocobalamin (vitamin B-12) 2,500 mcg tablet 2,500 mcg PO QAM losartan 100 mg tablet 100 mg PO QAM calcium carb-mag ox-zinc gluc 333-133-5 mg tablet 1 tab PO HS aspirin [Adult Low Dose Aspirin] 81 mg tablet,delayed release (DR/EC) 81 mg PO QAM ezetimibe 10 mg tablet 10 mg PO QAM carvedilol 12.5 mg tablet 12.5 mg PO BID Patient Comments: takes 2 tab qam/1 tab qpm Rx Instructions: must administer with a meal/food spironolactone 25 mg tablet 25 mg PO QAM (DME) Dexcom G6 Sensor Device See Rx Instructions .Route Rx Instructions: change every 10 days (DME) Contour Next Test Strips strip See Dose Instructions .ROUTE .MEDSUPPLY Qty: 10 Rx Instructions: As directed triamcinolone acetonide 0.1 % ointment 1 applic topical DAILY Qty: 30 1RF Rx Instructions: last filled in March 2024 7 day supply Eliquis 5 mg tablet 5 mg PO BID torsemide 10 mg tablet 10 mg PO QAM PRN (Reason: prn) insulin lispro [Humalog U-100 Insulin] 100 unit/mL solution 70 unit subcut DAILY Rx Instructions: Via insulin pump; TDD 70 units albuterol sulfate 0.63 mg/3 mL Solution For Nebulization 0.63 mg INHALATION Q4H PRN (Reason: sob) Patient Comments: has been using daily qam amlodipine [Norvasc] 10 mg tablet 10 mg PO QAM folic acid 1 mg tablet 1 mg PO HS Admission Data Admit Date/Time: 07/23/24 14:18 Attending Provider: Nick Sow Admit Provider: Amilcar Treviño Primary Care Provider: Michelle Jerome Other Providers: Amilcar Treviño; Moo Arriaga Other Interventions: Discharge Summary Assessment (RN) Last Done: 07/24/24 09:40 Hospital Stay Data Consultations 07/23/24 13:36 ED Decision to Admit Stat 07/23/24 15:43 Consult Gastroenterology Routine Procedures Performed Operation Date: 07/24/24 16:30 Actual Procedures p Esophagogastroduodenoscopy - Moo Arriaga MD Diagnostic Imagining Performed 07/23/24 11:44 US venous doppler LE BI Stat Coding Diagnoses Upper GI bleed K92.2 Pulmonary embolism I26.99 Chronic kidney disease, stage III (moderate) N18.3 Diabetes type 1, controlled E10.9 S/P CABG (coronary artery bypass graft) Z95.1
--- NOTE | 2024-07-25 13:50 | Gastroenterology Progress Note ---
Date of Service July 25, 2024 Assessment & Plan (1) Anemia: Plan: Patient has GAVE on endoscopy done yesterday she is on anticoagulation for a recent PE her H&H is stable no evidence of any active bleeding at the current time I would 1. Replete iron stores and monitor H&H 2. As outpatient would monitor H&H serially and ensure that it is above 10 3. If at any time there is active bleeding we will plan for a repeat EGD 4. Once patient is off the anticoagulation her GAVE should be treated with APC Thank you for allowing us to take part in the care of your patient we will continue to follow her with you Admission and Anticipated Discharge Date Admission Date: July 23, 2024 Subjective Patient is lying comfortably in the bed without any complaints she denies any dysphagia or reflux nausea vomiting or abdominal pain she states she has not had a bowel movement since her endoscopy yesterday her H&H is also stable essent ially she is quite stable from the GI standpoint Review of Systems Review of Systems: A 10 point review of systems was done Physical Exam Constitutional: WD/WN, vitals as above Respiratory: normal respiratory effort, lungs clear to auscultation Cardiovascular: RRR, no murmur, no edema (S S1 and S2) Gastrointestinal (Abdomen): normal bowel sounds, soft, nontender, no hepatosplenomegaly Results & Data Results & Data Vital Signs (Past 12 Hours) Vital Signs Temp Pulse Pulse Resp BP Pulse Ox O2 Del Method 07/25/24 12:01 36.5 C 79 16 125/72 93 Room Air 07/25/24 08:47 36.7 C 86 19 130/80 91 Room Air 07/25/24 08:00 78 07/25/24 04:00 36.9 C 81 18 148/83 H 92 Room Air PG Care Time/CCT Total # of Minutes Spent Total Time Spent with Patient: Total time spent is greater than 50% in coordination of care (as documented) at patient's floor/unit and/or counseling patient: Coding Level of Care Code 71073 SUB INP/OBS CARE 2/35MIN Diagnoses Anemia D64.9
== END 2024-07-25 14:31 | disposition home or self-care (01) | DRG 377 ==
LOC: ED 09:19 → SUATTDRO 14:18 → 2E 14:18